=== PATIENT | female | born 1960 | race Caucasian/White ===

== ENCOUNTER 2016-07-26 20:54 | Inpatient (IN) | payer MEDICARE ==
[2016-07-26] MEDS ORDERED: SODIUM CHLORIDE 0.9% 1,000 ML IV STA (21:39)
--- NOTE | 2016-07-26 21:50 | ED ---
General Adult HPI - General Chief complaint: Weakness Stated complaint: right side numbness Time Seen by Provider: 07/26/16 21:21 Source: patient, family, RN notes reviewed Mode of arrival: wheelchair Limitations: no limitations - History of Present Illness Initial comments: Patient is a pleasant 55-year-old female presenting to the emergency Department with right-sided paresthesias. Patient has been having headaches for the past couple of years, more so on the right side. Patient has had progressive right arm paresthesias over the past month or so. Patient has had right facial paresthesias since a couple of weeks ago. Patient started with right leg paresthesias last night. Patient does complain of generalized weakness however does not notice any isolated area of weakness. No history of similar symptoms previously. Patient does have a history of neuropathy. Patient does have stage IV kidney failure. Patient is not on dialysis. - Related Data Home Medications Medication Instructions Recorded Confirmed Sertraline [Zoloft] 100 mg PO DAILY 10/12/14 07/26/16 Aspirin EC [Ecotrin Low Dose] 81 mg PO DAILY 07/26/16 07/26/16 Atorvastatin [Lipitor] 40 mg PO DAILY 07/26/16 07/26/16 Chlorthalidone [Hygroton] 25 mg PO DAILY 07/26/16 07/26/16 Ergocalciferol [Vitamin D2] 50,000 unit PO TU 07/26/16 07/26/16 Ferrous Sulfate [Feosol] 325 mg PO DAILY 07/26/16 07/26/16 Insulin Aspart [NovoLOG] 18 unit SQ AC-TID 07/26/16 07/26/16 Insulin Degludec [Tresiba 55 unit SQ BID 07/26/16 07/26/16 Flextouch U-100] Metoclopramide [Reglan] 5 mg PO QID 07/26/16 07/26/16 Multivits-Min/Iron/FA/Lutein 1 tab PO DAILY 07/26/16 07/26/16 [Centrum Silver Women Tablet] amLODIPine [Norvasc] 10 mg PO DAILY 07/26/16 07/26/16 Allergies Allergy/AdvReac Type Severity Reaction Status Date / Time Latex, Natural Rubber Allergy Rash/Hives Verified 07/26/16 22:06 Penicillins Allergy Rash/Hives Verified 07/26/16 22:06 propoxyphene napsylate AdvReac Nausea & Verified 07/26/16 22:06 [From Darvocet-N] Vomiting Review of Systems ROS Statement: Those systems with pertinent positive or pertinent negative responses have been documented in the HPI. ROS Other: All systems not noted in ROS Statement are negative. Constitutional: Denies: fever Eyes: Denies: eye pain ENT: Denies: ear pain Respiratory: Denies: cough, dyspnea Cardiovascular: Denies: chest pain Endocrine: Reports: fatigue Gastrointestinal: Denies: abdominal pain Genitourinary: Denies: dysuria Musculoskeletal: Denies: back pain Skin: Denies: rash Neurological: Reports: weakness, numbness, paresthesias, abnormal gait Past Medical History Past Medical History: Diabetes Mellitus, Hyperlipidemia, Hypertension, Renal Disease Additional Past Medical History / Comment(s): retinopathy,neuropathy," ckd stage 4", "charcot foot" History of Any Multi-Drug Resistant Organisms: None Reported Past Surgical History: Cholecystectomy, Hysterectomy, Orthopedic Surgery, Tonsillectomy Additional Past Surgical History / Comment(s): cataract surgery-lens implants, partial hysterectomy, myomectomy, teddy foot sx bone removed and in the rt foot has plate/screws, ovaries bx-neg Past Anesthesia/Blood Transfusion Reactions: Postoperative Nausea & Vomiting ( PONV) Past Psychological History: Depression Smoking Status: Never smoker Past Alcohol Use History: None Reported Past Drug Use History: None Reported - Past Family History Father Additional Family Medical History / Comment(s): at age 45 from "coronary thrombus" Mother Family Medical History: COPD, Diabetes Mellitus General Exam Limitations: no limitations General appearance: alert, in no apparent distress Head exam: Present: atraumatic, normocephalic Eye exam: Present: normal appearance, PERRL, EOMI. Absent: nystagmus ENT exam: Present: normal oropharynx Neck exam: Present: normal inspection Respiratory exam: Present: normal lung sounds bilaterally Cardiovascular Exam: Present: regular rate, normal rhythm GI/Abdominal exam: Present: soft. Absent: tenderness Extremities exam: Present: normal inspection Neurological exam: Present: alert, oriented X3, CN II-XII intact. Absent: motor sensory deficit Expanded Speech: Present: fluid speech Cranial nerves: EOM's Intact: Normal, Facial Sensation: Normal Cerebellar function: Finger to Nose: Normal Sensory exam: Upper Extremity Light Touch: Abnormal Right (Patient is able to sense light touch however states it is less than normal), Lower Extremity Light Touch: Abnormal Right, Abnormal Left (Decreased sensation with patient states is chronic from her neuropathy) Motor strength exam: RUE: 4 (Patient is able to hold against gravity however slight decreased unindentured apprentice strength on the right), LUE: 5, RLE: 4, LLE: 5 Eye Response: (4) open spontaneously Motor Response: (6) obeys commands Verbal Response: (5) oriented Psychiatric exam: Present: normal affect, normal mood Skin exam: Absent: rash Course Vital Signs 07/26/16 21:06 Temperature 98.4 F Pulse Rate 88 Respiratory 20 Rate Blood Pressure 140/78 O2 Sat by Pulse 98 Oximetry EKG Findings - EKG Comments: EKG Findings:: Normal sinus rhythm at 84. SC 176. QRS 84. QT 388. QTC 450. Normal axis. Normal QRS. No acute ST change. Medical Decision Making - Medical Decision Making Patient reevaluated and resting comfortably in bed. Patient and family updated on results and plan. Case was discussed in detail with Dr. wheatley, who will admit for Dr. Field. Patient will need to be seen by neurology for evaluation for possible MS or other neurological causes. Symptoms are not felt to be secondary to stroke secondary to gradual onset. - Lab Data Result diagrams: 07/26/16 21:50 07/26/16 21:50 Lab Results 07/26/16 07/26/16 07/26/16 Range/Units 21:50 21:50 21:50 WBC 7.7 (3.8-10.6) k/uL RBC 4.37 (3.80-5.40) m/uL Hgb 12.0 (11.4-16.0) gm/dL Hct 36.6 (34.0-46.0) % MCV 83.7 (80.0-100.0) fL MCH 27.6 (25.0-35.0) pg MCHC 32.9 (31.0-37.0) g/dL RDW 14.6 (11.5-15.5) % Plt Count 207 (150-450) k/uL Neutrophils % 71 % Lymphocytes % 19 % Monocytes % 7 % Eosinophils % 1 % Basophils % 1 % Neutrophils # 5.4 (1.3-7.7) k/uL Lymphocytes # 1.5 (1.0-4.8) k/uL Monocytes # 0.5 (0-1.0) k/uL Eosinophils # 0.1 (0-0.7) k/uL Basophils # 0.1 (0-0.2) k/uL PT (9.0-12.0) sec INR (<1.1) APTT (22.0-30.0) sec Sodium 138 (137-145) mmol/L Potassium 4.6 (3.5-5.1) mmol/L Chloride 100 (98-107) mmol/L Carbon Dioxide 24 (22-30) mmol/L Anion Gap 14 mmol/L BUN 56 H (7-17) mg/dL Creatinine 2.50 H (0.52-1.04) mg/dL Est GFR (MDRD) Af Amer 24 (>60 ml/min/1.73 sqM) Est GFR (MDRD) Non-Af 20 (>60 ml/min/1.73 sqM) Glucose 112 H (74-99) mg/dL Calcium 9.2 (8.4-10.2) mg/dL Phosphorus 5.4 H (2.5-4.5) mg/dL Magnesium 2.1 (1.6-2.3) mg/dL Total Bilirubin 0.4 (0.2-1.3) mg/dL AST 29 (14-36) U/L ALT 43 (9-52) U/L Alkaline Phosphatase 110 (38-126) U/L Total Creatine Kinase 72 (30-135) U/L CK-MB (CK-2) 1.1 (0.0-2.4) ng/mL CK-MB (CK-2) Rel Index 1.5 Troponin I <0.012 (0.000-0.034) ng/mL Total Protein 6.8 (6.3-8.2) g/dL Albumin 3.7 (3.5-5.0) g/dL TSH 2.880 (0.465-4.680) mIU/L Free T4 1.08 (0.78-2.19) ng/dL Free T3 pg/mL 3.6 (2.8-5.3) pg/ml 07/26/16 Range/Units 21:50 WBC (3.8-10.6) k/uL RBC (3.80-5.40) m/uL Hgb (11.4-16.0) gm/dL Hct (34.0-46.0) % MCV (80.0-100.0) fL MCH (25.0-35.0) pg MCHC (31.0-37.0) g/dL RDW (11.5-15.5) % Plt Count (150-450) k/uL Neutrophils % % Lymphocytes % % Monocytes % % Eosinophils % % Basophils % % Neutrophils # (1.3-7.7) k/uL Lymphocytes # (1.0-4.8) k/uL Monocytes # (0-1.0) k/uL Eosinophils # (0-0.7) k/uL Basophils # (0-0.2) k/uL PT 9.6 (9.0-12.0) sec INR 0.9 (<1.1) APTT 23.3 (22.0-30.0) sec Sodium (137-145) mmol/L Potassium (3.5-5.1) mmol/L Chloride (98-107) mmol/L Carbon Dioxide (22-30) mmol/L Anion Gap mmol/L BUN (7-17) mg/dL Creatinine (0.52-1.04) mg/dL Est GFR (MDRD) Af Amer (>60 ml/min/1.73 sqM) Est GFR (MDRD) Non-Af (>60 ml/min/1.73 sqM) Glucose (74-99) mg/dL Calcium (8.4-10.2) mg/dL Phosphorus (2.5-4.5) mg/dL Magnesium (1.6-2.3) mg/dL Total Bilirubin (0.2-1.3) mg/dL AST (14-36) U/L ALT (9-52) U/L Alkaline Phosphatase (38-126) U/L Total Creatine Kinase (30-135) U/L CK-MB (CK-2) (0.0-2.4) ng/mL CK-MB (CK-2) Rel Index Troponin I (0.000-0.034) ng/mL Total Protein (6.3-8.2) g/dL Albumin (3.5-5.0) g/dL TSH (0.465-4.680) mIU/L Free T4 (0.78-2.19) ng/dL Free T3 pg/mL (2.8-5.3) pg/ml - Radiology Data Radiology results: report reviewed (EKG scan of the brain shows mild atrophy. No acute abnormality.), image reviewed (Two-view chest x-ray shows no acute process.) Disposition Clinical Impression: Weakness Disposition: ADMITTED IP TO THIS HOSP
[2016-07-26 22:05] LABS: Basophils # (A) 0.1 k/uL (0-0.2); Basophils % (A) 1 %; CH 28.9; CHCM 34.7; Eosinophils # (A) 0.1 k/uL (0-0.7); Eosinophils % (A) 1 %; HCT 36.6 % (34.0-46.0); Luc % (Auto) 1; Lymphocytes # (A) 1.5 k/uL (1.0-4.8); Lymphocytes % (A) 19 %; MCH 27.6 pg (25.0-35.0); MCHC 32.9 g/dL (31.0-37.0); MCV 83.7 fL (80.0-100.0); Mean Platelet Volume 7.5; Monocytes # (A) 0.5 k/uL (0-1.0); Monocytes % (A) 7 %; Neutrophils # (A) 5.4 k/uL (1.3-7.7); Neutrophils % (A) 71 %; RBC 4.37 m/uL (3.80-5.40); RDW 14.6 % (11.5-15.5); WBC 7.7 k/uL (3.8-10.6)
[2016-07-26 22:17] LABS: INR 0.9 (<1.1); Partial Thromboplastin Time 23.3 sec (22.0-30.0); Prothrombin Time 9.6 sec (9.0-12.0)
[2016-07-26 22:22] LABS: Calcium 9.2 mg/dL (8.4-10.2); Magnesium 2.1 mg/dL (1.6-2.3); Phosphorous 5.4 mg/dL (2.5-4.5); Potassium 4.6 mmol/L (3.5-5.1); Total Bilirubin 0.4 mg/dL (0.2-1.3); Total Protein 6.8 g/dL (6.3-8.2)
--- NOTE | 2016-07-26 22:31 | CT ---
EXAMINATION TYPE: CT brain wo con DATE OF EXAM: 07/26/2016 10:26 PM COMPARISON: NONE HISTORY: Right sided numbness x [address] DLP: 1115.00 mGycm Automated exposure control for dose reduction was used. FINDINGS: There is cerebral cortical atrophy. There is no mass effect or midline shift. There is no sign of int racranial hemorrhage. The calvarium is intact. IMPRESSION: Mild atrophy. No acute intracranial abnormality.
[2016-07-26 22:32] LABS: Creatine Kinase 72 U/L (30-135)
--- NOTE | 2016-07-26 22:32 | XR ---
EXAMINATION TYPE: XR chest 2V DATE OF EXAM: 07/26/2016 10:28 PM COMPARISON: NONE HISTORY: Weakness TECHNIQUE: Frontal and lateral views of the chest are obtained. FINDINGS: Heart and mediastinum are normal. Lungs are clear. Diaphragm is normal. Bony thorax is int act. IMPRESSION: Normal chest
[2016-07-26 22:46] LABS: Troponin I <0.012 ng/mL (0.000-0.034)
[2016-07-26 22:56] LABS: Creatine Kinase MB 1.1 ng/mL (0.0-2.4)
[2016-07-26] MEDS ORDERED: NALOXONE 0.4 MG/ML 1 ML VIAL IV PRN (23:21)
[2016-07-26] MEDS ORDERED: SODIUM CHLORIDE 0.9% 1,000 ML IV SCH (23:30)
[2016-07-27 00:56] LABS: Glucose,Whole Blood 166 mg/dL (75-99)
[2016-07-27 01:05] VITALS: BMI 31.0
[2016-07-27 05:02] LABS: Appearance,Urine Clear (Clear); Bacteria,Urine Rare /hpf; Bilirubin,Urine Negative (Negative); Glucose,Urine (UA) 3+ (Negative); Ketones,Urine Trace (Negative); Leukocyte Esterase,Urine Negative (Negative); Mucus,Urine Rare /hpf; Nitrite,Urine Negative (Negative); Particle Count 1448; Protein,Urine 3+ (Negative); RBC,Urine 1 /hpf (0-5); Specific Gravity,Urine 1.011 (1.001-1.035); Squamous Epithelial Cell,Urine <1 /hpf (0-4); UA Billing (MACRO vs. MICRO) MICRO; Urobilinogen,Urine <2.0 mg/dL (<2.0); WBC,Urine 9 /hpf (0-5)
[2016-07-27 07:16] LABS: Glucose,Whole Blood 254 mg/dL (75-99)
[2016-07-27] MEDS: INSULIN LISPRO (humaLOG) 300 UNIT/3 ML VIAL SQ SCH ×3 (07:58→16:59)
[2016-07-27] MEDS: FERROUS SULFATE 325 MG TAB PO SCH (08:00)
[2016-07-27] MEDS: METOCLOPRAMIDE 5 MG TAB PO SCH ×4 (08:00→23:21)
[2016-07-27] MEDS: ATORVASTATIN 40 MG TAB PO SCH (08:00)
[2016-07-27] MEDS: ASPIRIN 81 MG CHEW PO SCH (08:00)
[2016-07-27] MEDS: MULTIVITAMINS, THERA 1 EACH TAB PO SCH (08:01)
[2016-07-27] MEDS: SERTRALINE 100 MG TAB PO SCH (08:01)
[2016-07-27] MEDS: INSULIN GLARGINE 100 UNIT/ML 10 ML VIAL SQ SCH ×2 (08:04→20:14)
[2016-07-27] MEDS ORDERED: amLODIPine 10 MG TAB PO SCH (09:00)
[2016-07-27] MEDS ORDERED: CHLORTHALIDONE 25 MG TAB PO SCH (09:00)
[2016-07-27] MEDS ORDERED: INSULIN DEGLUDEC 55 UNIT SQ SCH (09:00)
[2016-07-27 12:42] LABS: Glucose,Whole Blood 144 mg/dL (75-99)
--- NOTE | 2016-07-27 13:01 | P.CNNES ---
History of Present Illness Consult date: 07/27/16 Reason for Consult: Patient admitted numbness and weakness on the right side. History of Present Illness: This patient is a 55-year-old right-handed white female who was in her usual state of health until late yesterday evening. She was at home and was sitting on the couch and her son asked her to go with him to get some groceries. Apparently she stood up and felt very weak on her right side. She was falling to her right side suddenly which was concern. The patient also began experiencing numbness on the right face arm and leg. The symptoms came on off- and-on for the past 1 month. She is also been having chronic headaches for over a month which was diagnosis possible sinus headaches. The patient states that she was feeling very much off balance and had difficulty standing on her right leg. She was experiencing paresthesias to her right side. The patient states that over the last month she has been feeling weaker. She does have a history of underlying diabetes mellitus and has been treated with insulin for this condition. Her most recent hemoglobin A1c was 9.6. She does have history of severe diabetic neuropathy in the extremities. Patient also has stage IV kidney failure. She has not required hemodialysis for this condition. She is followed by her special education secretary. The patient's stroke risk factors include hyperlipidemia, hypertension, and weakness some. The patient also was noted to have slight slurring of her speech which her who was at bedside states was slightly more noticeable to him in the last few days as well. The patient was brought to the emergency room late yesterday evening for evaluation. She was seen by Dr. Carranza who ordered a computed tomography scan of the brain. CAT scan of the brain revealed atrophy with no acute intracranial abnormality. Due to her symptoms there was concern for possibility of TIA versus stroke. Given her young age also question of demyelinating disease such as multiple sclerosis. Patient does have history of some visual changes off-and-on but denies any history of diplopia recently. She does take one baby aspirin on a daily basis for the last year. She is now been admitted and neurology has been consulted for further evaluation and recommendations. Review of Systems Constitutional: Denies chills, Denies fever Eyes: denies blurred vision, denies pain Ears, nose, mouth and throat: Denies headache, Denies sore throat Cardiovascular: Denies chest pain, Denies shortness of breath Respiratory: Denies cough Genitourinary: Denies dysuria, Denies hematuria Musculoskeletal: Denies myalgias Integumentary: Denies pruritus, Denies rash Neurological: Reports change in speech, Reports headaches, Reports migraines, Reports paresthesias, Reports transient paralysis, Denies numbness, Denies weakness Psychiatric: Denies anxiety, Denies depression Endocrine: Denies fatigue, Denies weight change Past Medical History Past Medical History: Diabetes Mellitus, Hyperlipidemia, Hypertension, Renal Disease Additional Past Medical History / Comment(s): retinopathy,neuropathy," ckd stage 4", "charcot foot" History of Any Multi-Drug Resistant Organisms: None Reported Past Surgical History: Cholecystectomy, Hysterectomy, Orthopedic Surgery, Tonsillectomy Additional Past Surgical History / Comment(s): cataract surgery-lens implants, partial hysterectomy, myomectomy, teddy foot sx bone removed and in the rt foot has plate/screws, ovaries bx-neg Past Anesthesia/Blood Transfusion Reactions: Postoperative Nausea & Vomiting ( PONV) Past Psychological History: Depression Smoking Status: Never smoker Past Alcohol Use History: None Reported Past Drug Use History: None Reported - Past Family History Father Additional Family Medical History / Comment(s): at age 45 from "coronary thrombus" Mother Family Medical History: COPD, Diabetes Mellitus Medications and Allergies Home Medications Medication Instructions Recorded Confirmed Type Sertraline [Zoloft] 100 mg PO DAILY 10/12/14 07/26/16 History Aspirin EC [Ecotrin Low Dose] 81 mg PO DAILY 07/26/16 07/26/16 History Atorvastatin [Lipitor] 40 mg PO DAILY 07/26/16 07/26/16 History Chlorthalidone [Hygroton] 25 mg PO DAILY 07/26/16 07/26/16 History Ergocalciferol [Vitamin D2] 50,000 unit PO TU 07/26/16 07/26/16 History Ferrous Sulfate [Feosol] 65 mg PO DAILY 07/26/16 07/27/16 History Insulin Aspart [NovoLOG] 18 unit SQ AC-TID 07/26/16 07/26/16 History Insulin Degludec [Tresiba 55 unit SQ BID 07/26/16 07/26/16 History Flextouch U-100] Metoclopramide [Reglan] 5 mg PO QID 07/26/16 07/26/16 History Multivits-Min/Iron/FA/Lutein 1 tab PO DAILY 07/26/16 07/26/16 History [Centrum Silver Women Tablet] amLODIPine [Norvasc] 10 mg PO DAILY 07/26/16 07/26/16 History Allergies Allergy/AdvReac Type Severity Reaction Status Date / Time Latex, Natural Rubber Allergy Rash/Hives Verified 07/26/16 22:06 Penicillins Allergy Rash/Hives Verified 07/26/16 22:06 propoxyphene napsylate AdvReac Nausea & Verified 07/26/16 22:06 [From Darvocet-N] Vomiting Physical Examination - Vital Signs Vital Signs: Vital Signs Temp Pulse Pulse Resp BP BP Pulse Ox 07/27/16 08:00 90 16 07/27/16 07:00 98 F 92 14 146/84 96 07/27/16 03:12 16 07/27/16 01:54 16 07/27/16 01:26 98.0 F 90 16 145/82 95 07/26/16 23:50 95 18 160/77 96 Intake and Output 07/26/16 07/27/16 07/27/16 22:59 06:59 14:59 Intake Total 100 350 Output Total 300 Balance -200 350 Intake: Amount of Fluid Infused ( 100 ml) Oral 350 Output: Urine 300 Other: # Voids 1 Weight 95.254 kg - Constitutional General appearance: average body habitus, cooperative - EENT EENT: PERRL, mucous membranes moist - Respiratory Respiratory: lungs clear, normal breath sounds - Cardiovascular Cardiovascular: regular rate, normal S1, normal S2 Extremities: no peripheral edema bilaterally - Gastrointestinal Gastrointestinal: normoactive bowel sounds - Integumentary Integumentary: normal - Neurologic Cranial nerve examination: PERRL, EOMI, VFF, V1/V2/V3 grossly intact, tongue midline, intact gag reflex, intact corneal reflex, facial droop (Patient has slight facial asymmetry on the right.), normal palatal elevation Speech examination: intact Sensorimotor examination: intact Detailed motor examination: grossly full strength in all extremities Detailed sensory examination: intact Reflex and gait examination: intact Reflexes: 0: ankle, knee, 1+: bicep, tricep - Musculoskeletal Musculoskeletal: no pain - Psychiatric Psychiatric: mood/affect appropriate, cooperative Results - Laboratory Findings CBC and BMP: 07/26/16 21:50 07/26/16 21:50 Abnormal Lab Findings: Abnormal Labs 07/27/16 07/27/16 07/27/16 00:54 04:20 07:14 POC Glucose (mg/dL) 166 H 254 H Urine Protein 3+ H Urine Glucose (UA) 3+ H Urine Ketones Trace H Urine Blood Moderate H Urine WBC 9 H Urine Bacteria Rare H Urine Mucus Rare H Assessment and Plan (1) Acute left arterial ischemic stroke, ICA (internal carotid artery) Status: Acute Code(s): I63.232 - CEREB INFRC DUE TO UNSP OCCLS OR STENOS OF LEFT CAROTID ART (2) Diabetic neuropathy Status: Acute Code(s): E11.40 - TYPE 2 DIABETES MELLITUS WITH DIABETIC NEUROPATHY, UNSP (3) Aphasia Status: Acute Code(s): R47.01 - APHASIA (4) Weakness Status: Acute Code(s): R53.1 - WEAKNESS (5) Acute kidney injury Status: Acute Code(s): N17.9 - ACUTE KIDNEY FAILURE, UNSPECIFIED Plan: This patient is a 55-year-old female admitted with sudden onset right-sided weakness and paresthesias late yesterday evening. She has been complaining of recurrent headache for the past 1 month. She also has had intermittent paresthesias involving her right side for the past several weeks. She was brought into the emergency room where she was evaluated last night by Dr. Carranza. She underwent computed tomography scan of the brain which was reported negative for acute changes. She was admitted to hospital for further evaluation. Her neurological exam findings indicate right-sided weakness and paresthesias. This suggest possibility of acute left hemispheric subcortical stroke. We have recommended complete stroke evaluation for the patient. Given her young age we would also rule out possibility of demyelinating disease such as multiple sclerosis. We recommend MRI of the brain. We would recommend a complete stroke evaluation to the patient. She is to continue on 1 aspirin daily for secondary stroke prevention. Overall prognosis at this time remains guarded. Case was discussed at length with the patient and her at bedside. All their questions are answered. We will continue close neurological follow-up for this patient during this admission. Time with Patient: Greater than 30
--- NOTE | 2016-07-27 15:16 | US ---
EXAMINATION TYPE: US carotid duplex BILAT DATE OF EXAM: 07/27/2016 2:11 PM COMPARISON: NONE CLINICAL HISTORY: 55-year-old female with right side weakness. TECHNIQUE: Duplex Doppler ultrasound examination of the carotid vessels. In direct Doppler criteria w as utilized. FINDINGS: Vazquez scale images show mild atherosclerotic changes at both bifurcations. RIGHT: Peak Systolic Velocity (PSV) cm/sec ----- Right CCA: 85.2 ----- Right ICA: 80.0 ----- Right ECA: 111.9 ICA/CCA ratio: 0.9 RIGHT: End Diastole cm/sec ----- Right CCA: 16.2 ----- Right ICA: 22.3 ----- Right ECA: 9.5 LEFT: Peak Systolic Velocity (PSV) cm/sec ----- Left CCA: 87.0 ----- Left ICA: 91.0 ----- Left ECA: 127.7 ICA/CCA ratio: 1.0 LEFT: End Diastole cm/sec ----- Left CCA: 14.5 ----- Left ICA: 29.3 ----- Left ECA: 8.6 VERTEBRALS (direction of flow): Right Vertebral: Antegrade Left Vertebral: Antegrade IMPRESSION: No hemodynamically significant stenosis appreciated in either ICA. Criteria for Assigning % of Stenosis / Diameter reduction (Estimation based on the indirect measurements of the internal carotid artery velocities (ICA PSV). 1. Normal (no stenosis)=ICA PSV < 125 cm/s: ratio < 2.0: ICA EDV<40 cm/s. 2. Less than 50% stenosis=ICA PSV < 125 cm/s: ratio < 2.0: ICA EDV<40 cm/s. 3. 50 to 69% stenosis=ICA PSV of 125 to 230 cm/s: ration 2.0 ? 4.0: ICA EDV 40-100 cm/s. 4. Greater than 70% stenosis to near occlusion= ICA PSV > 230 cm/s: ratio > 4.0: ICA EDV > 100 cm/s. 5. Near occlusion= ICA PSV velocities may be low or undetectable: variable ratio and ICA EDV. 6. Total occlusion=unable to detect flow.
--- NOTE | 2016-07-27 15:57 | MR ---
MRI brain without contrast HISTORY: Headache, right-sided weakness Multiplanar multisequence imaging through the brain and correlated to CT brain July There is no restricted diffusion. Corpus callosum, pituitary, cervical medullary junction, cerebellop ontine angles are normal. There are normal vascular flow voids. The orbits show symmetric appearance. Brain signal is remarkable for some periventricular hyperintensities on inversion recovery and T2-we ighted sequences which are minute. There are approximately 10-20 lesions. Mild mucosal disease presen t in the ethmoid air cells. IMPRESSION: Nonspecific foci of demyelination. Consider hypertension, migraine headaches, multiple sc lerosis in the appropriate clinical setting, vasculitis, follow-up as indicated. Mild sinus disease.
[2016-07-27] MEDS: SODIUM CHLORIDE 0.9% 1,000 ML IV SCH ×2 (16:57→20:15)
[2016-07-27 17:02] LABS: Glucose,Whole Blood 114 mg/dL (75-99)
[2016-07-27 20:19] LABS: Glucose,Whole Blood 133 mg/dL (75-99)
--- NOTE | 2016-07-27 22:30 | HP ---
Patient is a 55-year-old female, came in with complaints of weakness on the right side of the body along with numbness in the right arm and right side of face as well as leg and patient's strength is about 4/5. Patient was also having ( ). Patient denied any slurred speech, facial droop, denied any headache, nausea, vomiting. Patient denied any migraine or seizure-like activity. CAT scan of the brain was done which revealed ( ) abnormality. Neurology evaluated the patient and they suspected multiple sclerosis, because of which brain MRI was obtained. There were 10 to 20 lesions on the brain MRI which can be explained by multiple sclerosis. Patient denied any retro-orbital pain. REVIEW OF SYSTEMS: CONSTITUTIONAL: No fever, no malaise, no fatigue. HEENT: No recent visual problems or hearing problems. Denied any sore throat. CARDIOVASCULAR: No chest pain, orthopnea, PND, no palpitations, no syncope. PULMONARY: No shortness of breath, no cough, no hemoptysis. GASTROINTESTINAL: No diarrhea, no nausea, no vomiting, no abdominal pain. Normoactive bowel sounds. NEUROLOGIC: As described in HPI. HEMATOLOGICAL: Denies any bleeding or petechiae. GENITOURINARY: Denies any burning micturition, frequency, or urgency. MUSCULOSKELETAL/RHEUMATOLOGICAL: Denies any joint pain, swelling, or any muscle pain. ENDOCRINE: Denies any polyuria or polydipsia. The rest of the 14 point review of systems is negative. PAST MEDICAL HISTORY: Significant for diabetes mellitus, hyperlipidemia, hypertension, CKD stage 2 as per when I saw her about a year ago. At that time her baseline creatinine was around 1.3, now around 2.8. I believe patient has acute renal failure as well. Patient has diabetic retinopathy and neuropathy. Patient had a cholecystectomy and hysterectomy, orthopedic surgery, tonsillectomy and depression. SOCIAL HISTORY: Denied any smoking, alcohol abuse or any drug abuse. FAMILY HISTORY: Father at age 45 of ( ) thrombus. Mother had COPD, diabetes mellitus. Home medications include: 1. Aspirin. 2. Atorvastatin. 3. Chlorthalidone. 4. Cholecalciferol. 5. Ferrous sulfate. 6. Aspart insulin and 7. A long-acting insulin. 8. Metoclopramide. 9. Multivitamin and 10. Amlodipine. ALLERGIES: ALLERGIC TO LATEX, PENICILLIN AND PROPOXYPHENE. PHYSICAL EXAMINATION: VITAL SIGNS: Temperature 98, pulse of 90, respiratory rate of 16, blood pressure 146/84, saturating at 96% on room air. GENERAL: The patient is alert and oriented x3, not in any acute distress. Well developed, well nourished. HEENT: Pupils are round and equally reacting to light. EOMI. No scleral icterus. No conjunctival pallor. Normocephalic, atraumatic. No pharyngeal erythema. No thyromegaly. CARDIOVASCULAR: S1 and S2 present. No murmurs, rubs, or gallops. PULMONARY: Chest is clear to auscultation, no wheezing or crackles. ABDOMEN: Soft, nontender, nondistended, normoactive bowel sounds. No palpable organomegaly. MUSCULOSKELETAL: No joint swelling or deformity. EXTREMITIES: No cyanosis, clubbing, or pedal edema. NEUROLOGICAL: Cranial nerves 2-12 are intact except for 5th cranial nerve as mentioned above. Patient has absent ankle and knee jerks on the right side and patient's strength is about 4/5 in right upper extremity as well as lower extremity. SKIN: No rashes. LABORATORY DATA: CBC, CMP are abnormal for elevated BUN and creatinine of 56 and 2.5. 3+ protein 3+ glucose in the urine. CT, MRI as mentioned above. Carotid Doppler within normal limits. ASSESSMENT AND PLAN: 1. Weakness of the right side of the body. Definitely, strokes needs to be excluded. Patient's symptoms started yesterday morning, but patient has multiple lesions that can be explained by multiple sclerosis. Neurology is following the patient. 2. Type 2 diabetes mellitus. Will continue with her home regimen along with sliding scale insulin titrated as needed. 3. Diabetic neuropathy. 4. Diabetic nephropathy with stage 2 chronic kidney disease. 5. Stage 2 chronic kidney disease, acute renal failure, prerenal azotemia due to diuretic therapy. Patient is on diuretic in the form of chlorthalidone, which will be discontinued. Patient in the past has issues with acute renal failure and during her previous hospitalization, I treated her acute renal failure. I started her on 125 mL of fluids to allow kidney and brain perfusion. I will go ahead and discontinue amlodipine. 6. Hypertension management. As mentioned above, chlorthalidone and amlodipine will be discontinued. Patient's blood pressure will be monitored. 7. Depression. Continue home medications. 8. Hyperlipidemia. Continue with statin. 9. Patient's primary care physician is Dr. Gibson.
[2016-07-28] MEDS: SODIUM CHLORIDE 0.9% 1,000 ML IV SCH ×2 (02:42→14:20)
[2016-07-28 07:21] LABS: Calcium 8.6 mg/dL (8.4-10.2); Potassium 4.2 mmol/L (3.5-5.1)
[2016-07-28 07:28] LABS: CH 28.5; CHCM 32.8; HCT 31.4 % (34.0-46.0); HDW 3.04; HGB 10.2 gm/dL (11.4-16.0); MCH 28.2 pg (25.0-35.0); MCHC 32.4 g/dL (31.0-37.0); MCV 87.1 fL (80.0-100.0); RBC 3.61 m/uL (3.80-5.40); RDW 14.6 % (11.5-15.5); WBC 4.5 k/uL (3.8-10.6)
[2016-07-28 07:31] LABS: Glucose,Whole Blood 113 mg/dL (75-99)
[2016-07-28] MEDS: INSULIN GLARGINE 100 UNIT/ML 10 ML VIAL SQ SCH (08:51)
[2016-07-28] MEDS: INSULIN LISPRO (humaLOG) 300 UNIT/3 ML VIAL SQ SCH ×2 (08:53→14:20)
[2016-07-28] MEDS: SERTRALINE 100 MG TAB PO SCH (08:53)
[2016-07-28] MEDS: ATORVASTATIN 40 MG TAB PO SCH (08:53)
[2016-07-28] MEDS: METOCLOPRAMIDE 5 MG TAB PO SCH ×2 (08:53→14:19)
[2016-07-28] MEDS: MULTIVITAMINS, THERA 1 EACH TAB PO SCH (08:54)
[2016-07-28] MEDS: ASPIRIN 81 MG CHEW PO SCH (08:54)
[2016-07-28] MEDS: FERROUS SULFATE 325 MG TAB PO SCH (08:54)
--- NOTE | 2016-07-28 09:49 | EEG ---
DATE OF SERVICE: 07/27/2016 INDICATIONS FOR EXAMINATION: This patient is a 55-year-old female being evaluated for right-sided weakness and paresthesias. AGE: 55Y FINDINGS: A routine 21-channel awake digital EEG recording was accomplished utilizing the 10-20 international system with bipolar and referential montages. The background activity in the most alert resting state consists of a low to medium amplitude fairly well developed and well sustained 7-8 Hz activity over the posterior head regions. This posterior rhythm attenuates to eye opening. There is a small amount of low amplitude 18-20 Hz beta activity seen maximally over the anterior head regions. Muscle and movement artifact was observed on a few occasions during the tracing. Hyperventilation was not performed. Photic stimulation at flash frequencies of 2-30 Hz produced a minimal occipital driving response. No epileptiform discharges were seen. IMPRESSION: This EEG is within normal limits for the patient's age. The EEG failed to reveal any focal, lateralizing or epileptiform abnormalities. Clinical correlation is recommended.
[2016-07-28 11:03] LABS: Glucose,Whole Blood 201 mg/dL (75-99)
[2016-07-28 13:52] VITALS: BP 158/79; PULSE 87; RESP 17; TEMP 98
--- NOTE | 2016-07-28 14:30 | P.PN ---
Subjective This patient is a 55-year-old right-handed white female who was admitted to hospital yesterday with symptoms of right-sided paresthesias involving face arm and leg. Symptoms had been off and on for the last several weeks. She was brought into the emergency room as she was having difficulty walking. She underwent a palpation in the ER which included computed tomography scan of the brain. CAT scan of the brain failed to reveal any acute changes. She also complained of slight slurred speech which had improved since her admission. There was concern for possibility of TIA versus stroke. She was sent for MRI of the brain which was completed on 07/27/2016. MRI revealed nonspecific white matter changes in both hemispheres. Given her young age we were still considering possibility of demyelinating disease. We did discuss this yesterday with the patient in detail. There was no evidence of acute stroke. We did recommend the patient undergo a lumbar puncture for further evaluation for MS. Yesterday evening the patient had agreed and consultation with anesthesia was put in last night. Apparently this morning the patient has declined to undergo lumbar puncture at this time. She should continue on aspirin therapy for secondary stroke prevention. All of her other studies were reviewed and were within normal limits. Her EEG was normal for age. Patient may follow-up in the outpatient neurology clinic if she wishes to pursue further workup for possible MS. She is to continue on aspirin daily for secondary stroke prevention if she is discharged home today. Objective - Vital Signs Vital signs: Vital Signs Temp 98.0 F 07/28/16 13:52 Pulse 87 07/28/16 13:52 Resp 17 07/28/16 13:52 BP 158/79 07/28/16 13:52 Pulse Ox 96 07/28/16 13:52 Intake & Output 07/27/16 07/28/16 07/28/16 18:59 06:59 18:59 Intake Total 510 880 Balance 510 880 Intake: Intake, IV Titration 160 Amount Sodium Chloride 0.9% 1, 160 000 ml @ 20 mls/hr IV . Q24H AMOR Rx#:[id number] Oral 350 880 Other: Voiding Method Toilet Toilet # Voids 1 - Exam Physical examination: PHYSICAL EXAMINATION: Patient is resting comfortably in bed. VITAL SIGNS: Blood pressure is [158/79]. Heart rate is [87]. Respiration is [17] . Temperature is [98.0]. HEENT: Head is atraumatic, neck is supple, there were no carotid bruits. CHEST: Lungs are clear to auscultation and percussion. CARDIAC: S1, S2 normal rate and rhythm. There is no murmur. ABDOMEN: Soft and nontender. Bowel sounds are present. EXTREMITIES: There is no pedal edema. Peripheral pulses are present. Neurological examination: Patient has a nonfocal neurological exam. - Labs CBC & Chem 7: 07/28/16 06:38 07/28/16 06:38 Labs: Abnormal Lab Results - Last 24 Hours (Table) 07/27/16 07/27/16 07/28/16 Range/Units 17:00 20:13 06:38 RBC 3.61 L (3.80-5.40) m/uL Hgb 10.2 L (11.4-16.0) gm/dL Hct 31.4 L (34.0-46.0) % Plt Count 149 L (150-450) k/uL Chloride (98-107) mmol/L BUN (7-17) mg/dL Creatinine (0.52-1.04) mg/dL Glucose (74-99) mg/dL POC Glucose (mg/dL) 114 H 133 H (75-99) mg/dL 07/28/16 07/28/16 07/28/16 Range/Units 06:38 07:21 11:00 RBC (3.80-5.40) m/uL Hgb (11.4-16.0) gm/dL Hct (34.0-46.0) % Plt Count (150-450) k/uL Chloride 110 H (98-107) mmol/L BUN 56 H (7-17) mg/dL Creatinine 3.01 H (0.52-1.04) mg/dL Glucose 106 H (74-99) mg/dL POC Glucose (mg/dL) 113 H 201 H (75-99) mg/dL Assessment and Plan (1) Acute left arterial ischemic stroke, ICA (internal carotid artery) Status: Acute Code(s): I63.232 - CEREB INFRC DUE TO UNSP OCCLS OR STENOS OF LEFT CAROTID ART (2) Diabetic neuropathy Status: Acute Code(s): E11.40 - TYPE 2 DIABETES MELLITUS WITH DIABETIC NEUROPATHY, UNSP (3) Aphasia Status: Acute Code(s): R47.01 - APHASIA (4) Weakness Status: Acute Code(s): R53.1 - WEAKNESS (5) Acute kidney injury Status: Acute Code(s): N17.9 - ACUTE KIDNEY FAILURE, UNSPECIFIED Plan: This patient is a 55-year-old female who was admitted to hospital with episode of right-sided face arm and leg numbness which had been intermittently occurring over the last 2 weeks at home. She was admitted hospital for further evaluation of possible TIA versus stroke. Social concern for possibility of demyelinating disease given her young age. She underwent a MRI of the brain yesterday which was reviewed and is noted above. MRI revealed nonspecific white matter changes in both hemispheres. There was no evidence of acute stroke. Patient was recommended to undergo lumbar puncture for further evaluation of demyelinating disease such as MS. Patient this morning declined to have lumbar puncture done and wanted to be discharged. We recommend that she continue on 1 aspirin daily for secondary stroke prevention. If she decides or changes her mind in terms of undergoing lumbar puncture for further evaluation of MS this can be arranged in the outpatient setting. She should follow-up with her primary care physician soon after discharge. Her overall prognosis at this time remains guarded.
--- NOTE | 2016-07-28 20:53 | DS ---
DATE OF ADMISSION: 07/26/2016 DATE OF DISCHARGE: 07/28/2016 55-year-old admitted with weakness on the right side, although MRA and MRI was read by radiologist as multiple lesions. Neurology evaluated the patient. They do not believe patient has multiple sclerosis. They did review the MRI as well and patient's symptomatology is not impressive for any TIA or a stroke and patient declined to get a lumbar puncture to confirm there is MS because of which patient will follow up with Jose Alberto Mackey as an outpatient with possible outpatient lumbar puncture. Patient will be discharged today in stable medical condition to home. Patient's creatinine worsened a little bit. Hopefully that will improve with discontinuation of Chlorthalidone and repeat basic metabolic profile will be obtained. It did not improve with IV fluids. Patient appears to have CKD. The patient was seen and examined on the day of discharge. Vital signs stable. PHYSICAL EXAMINATION: GENERAL: The patient is alert and oriented x3, not in any acute distress. Well developed, well nourished. HEENT: Pupils are round and equally reacting to light. EOMI. No scleral icterus. No conjunctival pallor. Normocephalic, atraumatic. No pharyngeal erythema. No thyromegaly. CARDIOVASCULAR: S1 and S2 present. No murmurs, rubs, or gallops. PULMONARY: Chest is clear to auscultation, no wheezing or crackles. ABDOMEN: Soft, nontender, nondistended, normoactive bowel sounds. No palpable organomegaly. MUSCULOSKELETAL: No joint swelling or deformity. EXTREMITIES: No cyanosis, clubbing, or pedal edema. NEUROLOGICAL: Gross neurological examination did not reveal any focal deficits. SKIN: No rashes. FINAL DIAGNOSIS(ES): 1. Weakness on the right of the body which completely resolved. As per neurology evaluation low suspicion for either TIA or multiple sclerosis. 2. Type 2 diabetes mellitus. 3. Diabetic nephropathy. 4. Diabetic neuropathy. 5. Chronic kidney disease Stage IV a little worse than her baseline creatinine. 6. Hypertension. 7. Depression. 8. Hyperlipidemia. Please refer to my depart summary for further details of discharge medications. Only changes are made is discontinued Chlorthalidone because of poor renal function it may not be effective and it may actually improve the creatinine. Basic metabolic profile is to be tested in 3 days on Sunday and results to be faxed to Dr. Bazo's clinic. DISCHARGE DIET: Cardiac ADA 1800 calorie diet. Follow up with Dr. Gibson in 3 to [address] Jose Alberto Arcos in about a week. Spent greater than 35 minutes in total discharge process.
[2016-08-01] MEDS ORDERED: ERGOCALCIFEROL 50,000 UNIT CAP PO SCH (09:00)
--- NOTE | 2016-08-01 13:09 | CDI ---
In responding to this query, please exercise your independent professional judgment. The [facility] Coding Staff and Clinical Documentation Specialists appreciate your assistance in clarifying documentation, maintaining compliance with coding guidelines, accurately documenting patients condition and capturing severity of illness. The fact that a question is asked does not imply that any particular answer is desired or expected. Communication forms are a method of clarifying documentation and are not made part of the Legal Health Record. Thank you in advance for your clarification. Last Revision, May 2015 Christina Calhoun [address] [place] [address] Documentation Clarification Form Date: 08/01/2016 12:30:00 PM From: Cynthia Arnold Admit Date: 07/26/2016 11:21:00 PM Patient Name: Nury Philip Visit Number: [id number] Discharge Date: Dr. Jose Alberto Arcos ER with chief complaint of weakness Patient history/risk factors: Diabetes Mellitus, Hyperlipidemia, Hypertension, Renal disease, CKD stage 4, Neuropathy Clinical Indicators: ER with right-sided paresthesias progressive over the past month or so. Prior right facial paresthesias. Exam: RUE: 4, LUE:5, RLE: 4, LLE: 5; obeys commands, orientated Lab findings: BUN 56, CR 2.50 Vital Signs: 146/84 90 16 98, 96 % RA Radiology findings: CT Brain: mild atrophy Brain MRI: Nonspecific foci of demyelination. Consider hypertension, migraine headaches, MS, vasculitis. Carotid US: No hemodynamically significant stenosis appreciated in either ICA Other Clinical Indicators: weakness on right side of body with patient's strength 4/5 in right upper and lower extremities. Attending: Neurology do not believe patient has multiple sclerosis. MRI and patient's symptomatology is not impressive for any TIA or stroke and patient decline to get a lumbar puncture to confirm there is MS. Treatment: Neuro checks ASA PO Consults: Neurology: Concern for possibility of PEÑA versus stroke. No evidence of stroke. Follow -up lumbar puncture for further evaluation of demyelinating disease such as MS In your professional opinion, can you please clarify the possible, probable cause of the patient weakness? Other (Specify) Unable to determine Please document in your progress notes and discharge summary in order to capture severity of illness and risk of mortality. Include clinical findings that support your diagnosis. FYI: Press F11 to launch patient chart. Place X here if this finding has no clinical significance, is not applicable or if you are not able to provide any additional documentation. MTDD
== END 2016-07-28 15:35 | disposition home or self-care (01) | DRG 948 ==
LOC: EC 20:54 → 3SUR 23:21
PROVIDERS: ADMIT Internal Medicine; ATTEND Internal Medicine
DX: R53.1 Weakness (principal); E11.21 Type 2 diabetes mellitus with diabetic nephropathy; N17.9 Acute kidney failure, unspecified; N18.4 Chronic kidney disease, stage 4 (severe); E11.40 Type 2 diabetes mellitus with diabetic neuropathy, unspecified; G81.91 Hemiplegia, unspecified affecting right dominant side; R47.01 Aphasia; E11.22 Type 2 diabetes mellitus with diabetic chronic kidney disease; E11.319 Type 2 diabetes mellitus with unspecified diabetic retinopathy without macular edema; I12.9 Hypertensive chronic kidney disease with stage 1 through stage 4 chronic kidney disease, or unspecified chronic kidney disease; E78.5 Hyperlipidemia, unspecified; F32.9 Major depressive disorder, single episode, unspecified; E11.610 Type 2 diabetes mellitus with diabetic neuropathic arthropathy; T50.2X5A Adverse effect of carbonic-anhydrase inhibitors, benzothiadiazides and other diuretics, initial encounter; Z98.49 Cataract extraction status, unspecified eye; Z96.1 Presence of intraocular lens; Z90.49 Acquired absence of other specified parts of digestive tract; Z90.710 Acquired absence of both cervix and uterus; Z91.040 Latex allergy status; Z88.0 Allergy status to penicillin; Z91.09 Other allergy status, other than to drugs and biological substances; Z79.82 Long term (current) use of aspirin; Z79.4 Long term (current) use of insulin; Z79.899 Other long term (current) drug therapy
CPT/HCPCS: 36415; 70450; 70551; 71020; 80048; 80053; 81001; 82550; 82553; 83735; 84100; 84439; 84443; 84481; 84484; 85025; 85027; 85610; 85730; 93005; 93880; 95819; 99285

== ENCOUNTER → 2016-09-14 | Outpatient (CLI) | payer MEDICARE ==
[2016-09-14 14:51] LABS: Basophils % (A) 1 %; CH 28.4; Eosinophils # (A) 0.1 k/uL (0-0.7); Eosinophils % (A) 2 %; HCT 38.5 % (34.0-46.0); HDW 3.09; HGB 12.3 gm/dL (11.4-16.0); Hypochromasia Slight; Luc # (Auto) 0.09; Luc % (Auto) 2; Lymphocytes # (A) 1.3 k/uL (1.0-4.8); Lymphocytes % (A) 25 %; MCH 28.6 pg (25.0-35.0); MCV 89.3 fL (80.0-100.0); Mean Platelet Volume 7.3; Monocytes # (A) 0.2 k/uL (0-1.0); Monocytes % (A) 4 %; Neutrophils # (A) 3.3 k/uL (1.3-7.7); Neutrophils % (A) 67 %; RBC 4.31 m/uL (3.80-5.40); RDW 14.8 % (11.5-15.5); WBC 4.9 k/uL (3.8-10.6); WBC (Perox) 5.14
[2016-09-14 14:56] LABS: Amorphous Sediment,Urine Rare /hpf; Appearance,Urine Cloudy (Clear); Bacteria,Urine Rare /hpf; Bilirubin,Urine Negative (Negative); Glucose,Urine (UA) 4+ (Negative); Ketones,Urine Negative (Negative); Leukocyte Esterase,Urine Negative (Negative); Mucus,Urine Rare /hpf; Nitrite,Urine Negative (Negative); PH, Urine 6.5 (5.0-8.0); Particle Count 2471; Protein,Urine 3+ (Negative); RBC,Urine 7 /hpf (0-5); Specific Gravity,Urine 1.016 (1.001-1.035); Squamous Epithelial Cell,Urine 1 /hpf (0-4); UA Billing (MACRO vs. MICRO) MICRO; Urobilinogen,Urine <2.0 mg/dL (<2.0); WBC,Urine 22 /hpf (0-5)
[2016-09-14 14:57] LABS: Calcium 8.9 mg/dL (8.4-10.2); Phosphorous 4.9 mg/dL (2.5-4.5); Potassium 4.9 mmol/L (3.5-5.1); Uric Acid 5.6 mg/dL (3.7-7.4)
== END | disposition home or self-care (01) ==
LOC: LABWHC1 14:25
PROVIDERS: ATTEND Nurse Practitioner Family
DX: N18.4 Chronic kidney disease, stage 4 (severe) (principal); E83.39 Other disorders of phosphorus metabolism; E55.9 Vitamin D deficiency, unspecified; D64.9 Anemia, unspecified; M10.9 Gout, unspecified; N39.0 Urinary tract infection, site not specified
CPT/HCPCS: 36415; 80048; 81001; 82040; 82306; 82728; 83540; 83550; 83970; 84100; 84550; 85025

== ENCOUNTER → 2016-10-11 | Outpatient (CLI) | payer MEDICARE ==
[2016-10-11 13:31] LABS: Basophils % (A) 1 %; CH 28.4; CHCM 33.1; Eosinophils # (A) 0.1 k/uL (0-0.7); Eosinophils % (A) 1 %; HCT 36.9 % (34.0-46.0); HDW 3.15; HGB 12.3 gm/dL (11.4-16.0); Luc # (Auto) 0.14; Luc % (Auto) 3; Lymphocytes # (A) 1.1 k/uL (1.0-4.8); Lymphocytes % (A) 20 %; MCH 28.7 pg (25.0-35.0); MCHC 33.3 g/dL (31.0-37.0); MCV 86.3 fL (80.0-100.0); Mean Platelet Volume 7.8; Monocytes # (A) 0.2 k/uL (0-1.0); Monocytes % (A) 4 %; Neutrophils # (A) 3.9 k/uL (1.3-7.7); Neutrophils % (A) 71 %; RBC 4.27 m/uL (3.80-5.40); RDW 14.4 % (11.5-15.5); WBC 5.5 k/uL (3.8-10.6); WBC (Perox) 5.63
[2016-10-11 13:39] LABS: Appearance,Urine Clear (Clear); Bacteria,Urine Rare /hpf; Bilirubin,Urine Negative (Negative); Glucose,Urine (UA) 4+ (Negative); Ketones,Urine Negative (Negative); Leukocyte Esterase,Urine Negative (Negative); Nitrite,Urine Negative (Negative); PH, Urine 6.5 (5.0-8.0); Particle Count 522; Protein,Urine 3+ (Negative); RBC,Urine 1 /hpf (0-5); UA Billing (MACRO vs. MICRO) MICRO; Urobilinogen,Urine <2.0 mg/dL (<2.0); WBC,Urine 2 /hpf (0-5)
[2016-10-11 13:58] LABS: Calcium 9.2 mg/dL (8.4-10.2); Phosphorous 5.2 mg/dL (2.5-4.5); Potassium 4.2 mmol/L (3.5-5.1); Uric Acid 6.8 mg/dL (3.7-7.4)
[2016-10-11 14:07] LABS: % Iron Saturation 24.5 % (20-50)
== END ==
LOC: LABWHC1 12:50
PROVIDERS: ATTEND Nurse Practitioner Family
DX: N18.4 Chronic kidney disease, stage 4 (severe) (principal); E83.39 Other disorders of phosphorus metabolism; M10.9 Gout, unspecified; N39.0 Urinary tract infection, site not specified; E55.9 Vitamin D deficiency, unspecified; D63.1 Anemia in chronic kidney disease
CPT/HCPCS: 36415; 80048; 81001; 82040; 82306; 82728; 83540; 83550; 83970; 84100; 84550; 85025

== ENCOUNTER → 2016-10-27 | Outpatient (CLI) | payer MEDICARE ==
[2016-10-27 11:38] LABS: Appearance,Urine Clear (Clear); Bilirubin,Urine Negative (Negative); Glucose,Urine (UA) 3+ (Negative); Ketones,Urine Negative (Negative); Leukocyte Esterase,Urine Negative (Negative); Nitrite,Urine Negative (Negative); Particle Count 1143; Protein,Urine 3+ (Negative); RBC,Urine 2 /hpf (0-5); UA Billing (MACRO vs. MICRO) MICRO; Urobilinogen,Urine <2.0 mg/dL (<2.0); WBC,Urine 1 /hpf (0-5)
[2016-10-27 12:12] LABS: Calcium 9.3 mg/dL (8.4-10.2); Potassium 4.7 mmol/L (3.5-5.1)
[2016-10-27 12:34] LABS: Hemoglobin A1C 9.1 % (4.2-6.1)
== END | disposition home or self-care (01) ==
LOC: LABWHC1 11:07
PROVIDERS: ATTEND Nurse Practitioner Family
DX: N18.4 Chronic kidney disease, stage 4 (severe) (principal); E83.39 Other disorders of phosphorus metabolism; E10.65 Type 1 diabetes mellitus with hyperglycemia; N39.0 Urinary tract infection, site not specified
CPT/HCPCS: 36415; 80048; 81001; 82040; 83036; 84100

== ENCOUNTER → 2016-12-13 | Outpatient (CLI) | payer MEDICARE ==
[2016-12-13 13:59] LABS: CH 28.3; HCT 38.3 % (34.0-46.0); HDW 3.04; HGB 12.1 gm/dL (11.4-16.0); Hypochromasia Slight; MCHC 31.6 g/dL (31.0-37.0); MCV 88.7 fL (80.0-100.0); Mean Platelet Volume 7.9; RBC 4.32 m/uL (3.80-5.40); RDW 14.6 % (11.5-15.5); WBC 4.9 k/uL (3.8-10.6)
[2016-12-13 14:09] LABS: Appearance,Urine Clear (Clear); Bacteria,Urine Rare /hpf; Bilirubin,Urine Negative (Negative); Glucose,Urine (UA) 4+ (Negative); Ketones,Urine Negative (Negative); Leukocyte Esterase,Urine Negative (Negative); Mucus,Urine Rare /hpf; Nitrite,Urine Negative (Negative); PH, Urine 6.5 (5.0-8.0); Particle Count 3174; Protein,Urine 3+ (Negative); RBC,Urine 3 /hpf (0-5); Specific Gravity,Urine 1.012 (1.001-1.035); UA Billing (MACRO vs. MICRO) MICRO; Urobilinogen,Urine <2.0 mg/dL (<2.0); WBC,Urine 3 /hpf (0-5)
[2016-12-13 14:17] LABS: Calcium 9.3 mg/dL (8.4-10.2); Magnesium 1.9 mg/dL (1.6-2.3); Phosphorous 4.3 mg/dL (2.5-4.5); Potassium 4.7 mmol/L (3.5-5.1); Uric Acid 6.2 mg/dL (3.7-7.4)
[2016-12-13 14:26] LABS: % Iron Saturation 33.6 % (20-50)
[2016-12-13 19:41] LABS: Hemoglobin A1C 8.5 % (4.2-6.1)
== END | disposition home or self-care (01) ==
LOC: LABWHC1 13:33
PROVIDERS: ATTEND Nurse Practitioner Family
DX: E10.65 Type 1 diabetes mellitus with hyperglycemia (principal); E83.39 Other disorders of phosphorus metabolism; N18.4 Chronic kidney disease, stage 4 (severe); D64.9 Anemia, unspecified; E21.3 Hyperparathyroidism, unspecified; E55.9 Vitamin D deficiency, unspecified; N39.0 Urinary tract infection, site not specified; M10.9 Gout, unspecified
CPT/HCPCS: 36415; 80048; 81001; 82040; 82306; 82728; 83036; 83540; 83550; 83735; 83970; 84100; 84550; 85027

== ENCOUNTER → 2017-01-03 | Outpatient (CLI) | payer MEDICARE | END | disposition home or self-care (01) | LOC: LABWHC1 07:00 | PROVIDERS: ATTEND Nurse Practitioner Family | DX: I12.9 Hypertensive chronic kidney disease with stage 1 through stage 4 chronic kidney disease, or unspecified chronic kidney disease (principal); N18.3 Chronic kidney disease, stage 3 (moderate) | CPT/HCPCS: 36415; 84132 ==

== ENCOUNTER → 2017-01-17 | Outpatient (CLI) | payer MEDICARE ==
[2017-01-17 12:08] LABS: Appearance,Urine Cloudy (Clear); Bacteria,Urine Many /hpf; Bilirubin,Urine Negative (Negative); Glucose,Urine (UA) 4+ (Negative); Ketones,Urine Negative (Negative); Leukocyte Esterase,Urine Large (Negative); Mucus,Urine Few /hpf; Nitrite,Urine Positive (Negative); Particle Count 20613; Protein,Urine 3+ (Negative); RBC,Urine 35 /hpf (0-5); Specific Gravity,Urine 1.013 (1.001-1.035); UA Billing (MACRO vs. MICRO) MICRO; Urobilinogen,Urine <2.0 mg/dL (<2.0); WBC,Urine >182 /hpf (0-5)
[2017-01-17 12:34] LABS: CH 27.5; CHCM 31.9; HCT 30.2 % (34.0-46.0); HDW 3.25; HGB 10.3 gm/dL (11.4-16.0); Hypochromasia Slight; MCH 29.3 pg (25.0-35.0); MCHC 33.9 g/dL (31.0-37.0); MCV 86.3 fL (80.0-100.0); Mean Platelet Volume 7.4; WBC 7.5 k/uL (3.8-10.6)
[2017-01-17 12:45] LABS: Calcium 8.5 mg/dL (8.4-10.2); Magnesium 1.8 mg/dL (1.6-2.3); Phosphorous 6.4 mg/dL (2.5-4.5); Potassium 4.4 mmol/L (3.5-5.1); Uric Acid 6.5 mg/dL (3.7-7.4)
[2017-01-17 14:01] LABS: Hemoglobin A1C 8.3 % (4.2-6.1)
[2017-01-17 14:39] LABS: % Iron Saturation 18.8 % (20-50)
== END | disposition home or self-care (01) ==
LOC: LABWHC1 11:10
PROVIDERS: ATTEND Nurse Practitioner Family
DX: D64.9 Anemia, unspecified (principal); E10.65 Type 1 diabetes mellitus with hyperglycemia; E55.9 Vitamin D deficiency, unspecified; E21.3 Hyperparathyroidism, unspecified; N18.4 Chronic kidney disease, stage 4 (severe); N39.0 Urinary tract infection, site not specified; M10.9 Gout, unspecified
CPT/HCPCS: 36415; 80048; 81001; 82040; 82306; 82728; 83036; 83540; 83550; 83735; 83970; 84100; 84550; 85027

== ENCOUNTER 2017-01-26 10:01 | Inpatient (IN) | payer MEDICARE ==
--- NOTE | 2017-01-26 10:42 | ED ---
General Adult HPI - General Chief complaint: Nausea/Vomiting/Diarrhea Stated complaint: Nausea/Vomiting Time Seen by Provider: 01/26/17 10:41 Source: patient, EMS Mode of arrival: EMS - History of Present Illness Initial comments: Patient is a 56-year-old female with past medical history of poorly controlled insulin-dependent diabetes who presents to the emergency department for evaluation of nausea and vomiting. Initial history was obtained from the patient's as the patient was actively vomiting and unable to speak for herself. reports the patient has poorly controlled diabetes, chronic kidney disease and is currently being treated for a foot ulcer with by mouth clindamycin. Patient developed nausea and nonbloody nonbilious emesis last night. The emesis has continued throughout the morning, this morning they noted some blood streaking in her vomitus which prompted the to call 911 for transfer to the hospital. In route to the hospital the patient received fluids and 4 mg of IV Zofran without any resolution of her nausea. An [id number] blood glucose was determined to be 475, states that this happens to the patient occasionally, he is unsure if she has ever been in DKA. - Related Data Home Medications Medication Instructions Recorded Confirmed Aspirin EC [Ecotrin Low Dose] 81 mg PO DAILY 07/26/16 01/26/17 Atorvastatin [Lipitor] 40 mg PO DAILY 07/26/16 01/26/17 Ergocalciferol [Vitamin D2 50,000 unit PO Q14D 07/26/16 01/26/17 (DRISDOL)] Insulin Aspart [NovoLOG] 18 unit SQ AC-TID 07/26/16 01/26/17 Metoclopramide [Reglan] 5 mg PO TID 07/26/16 01/26/17 amLODIPine [Norvasc] 10 mg PO DAILY 07/26/16 01/26/17 Calcitriol 0.25 mcg PO Q7D 01/26/17 01/26/17 Calcium Acetate [Phoslo] 667 mg PO DAILY 01/26/17 01/26/17 Chlorthalidone [Hygroton] 25 mg PO DAILY 01/26/17 01/26/17 Insulin Glargine,Hum.rec.anlog 50 unit SQ BID 01/26/17 01/26/17 [Lantus Solostar] Spironolactone [Aldactone] 25 mg PO DAILY 01/26/17 01/26/17 Torsemide [Demadex] 40 mg PO Q48H 01/26/17 01/26/17 Allergies Allergy/AdvReac Type Severity Reaction Status Date / Time Latex, Natural Rubber Allergy Rash/Hives Verified 01/26/17 10:17 Penicillins Allergy Rash/Hives Verified 01/26/17 10:17 propoxyphene napsylate AdvReac Nausea & Verified 01/26/17 10:17 [From Conor-N] Vomiting Review of Systems ROS Statement: Those systems with pertinent positive or pertinent negative responses have been documented in the HPI. ROS Other: All systems not noted in ROS Statement are negative. Constitutional: Reports: chills Endocrine: Reports: fatigue Gastrointestinal: Reports: abdominal pain, nausea, vomiting Past Medical History Past Medical History: Diabetes Mellitus, Hyperlipidemia, Hypertension, Renal Disease Additional Past Medical History / Comment(s): retinopathy,neuropathy," ckd stage 4", "charcot foot" History of Any Multi-Drug Resistant Organisms: None Reported Past Surgical History: Cholecystectomy, Hysterectomy, Orthopedic Surgery, Tonsillectomy Additional Past Surgical History / Comment(s): cataract surgery-lens implants, partial hysterectomy, myomectomy, teddy foot sx bone removed and in the rt foot has plate/screws, ovaries bx-neg Past Anesthesia/Blood Transfusion Reactions: Postoperative Nausea & Vomiting ( PONV) Past Psychological History: Depression Smoking Status: Never smoker Past Alcohol Use History: None Reported Past Drug Use History: None Reported - Past Family History Father Additional Family Medical History / Comment(s): at age 45 from "coronary thrombus" Mother Family Medical History: COPD, Diabetes Mellitus General Exam General appearance: alert, other (Actively vomiting, appears uncomfortable) Head exam: Present: atraumatic, normocephalic, normal inspection ENT exam: Present: mucous membranes moist Neck exam: Present: full ROM Course Vital Signs 01/26/17 01/26/17 01/26/17 10:04 11:07 13:41 Temperature 97.1 F L Pulse Rate 109 H 107 H 110 H Respiratory 20 20 16 Rate Blood Pressure 204/95 185/83 204/92 O2 Sat by Pulse 96 98 99 Oximetry 01/26/17 01/26/17 01/26/17 13:55 14:03 14:23 Temperature Pulse Rate 94 Respiratory 105 H Rate Blood Pressure 189/86 179/70 191/83 O2 Sat by Pulse Oximetry - Reevaluation(s) Reevaluation #1: She reported no improvement in her nausea after Reglan and Benadryl, patient is still nauseated and heaving. Reevaluation #2: Patient reports improvement in her nausea after Phenergan, is now able speak without heaving or vomiting. She denies any abdominal pain, she denies any complaints aside from the nausea and vomiting. Medical Decision Making - Medical Decision Making Patient seen and evaluated History is obtained from the patient's as the patient was actively vomiting spite being given Zofran in route to the hospital Prehospital blood glucose was 475, there is concern for dehydration as well as DKA, labs and IV fluids were ordered Reglan and Benadryl were ordered for nausea Pepcid was ordered GI prophylaxis given the patient is having blood streaking in her vomitus With persistent nausea and vomiting after Reglan and Benadryl, Phenergan ordered Lab reveal hyperglycemia, acute kidney injury additional 1 L normal saline bolus was ordered Units of IV insulin ordered glucose remains elevated, results were discussed with the patient who states usually give herself 18 units of insulin for glucose is elevated, and units of IV insulin ordered Patient noted to be hypertensive and tachycardic, this likely related to acute renal injury, IV labetalol ordered Care was discussed with Dr. Rebolledo who accepts admission for nausea, vomiting, dehydration, acute kidney injury, hyperglycemia without evidence of DKA Admission orders placed - Lab Data Result diagrams: 01/26/17 10:05 01/26/17 10:05 Lab Results 01/26/17 01/26/17 01/26/17 Range/Units 10:05 10:05 10:05 WBC 10.7 H (3.8-10.6) k/uL RBC 4.24 (3.80-5.40) m/uL Hgb 12.4 (11.4-16.0) gm/dL Hct 35.4 (34.0-46.0) % MCV 83.4 (80.0-100.0) fL MCH 29.1 (25.0-35.0) pg MCHC 34.9 (31.0-37.0) g/dL RDW 15.5 (11.5-15.5) % Plt Count 253 (150-450) k/uL Neutrophils % 90 % Lymphocytes % 8 % Monocytes % 2 % Eosinophils % 0 % Basophils % 0 % Neutrophils # 9.5 H (1.3-7.7) k/uL Lymphocytes # 0.8 L (1.0-4.8) k/uL Monocytes # 0.2 (0-1.0) k/uL Eosinophils # 0.0 (0-0.7) k/uL Basophils # 0.0 (0-0.2) k/uL VBG pH (7.31-7.41) VBG pCO2 (37-51) mmHg VBG HCO3 (24-28) mmol/L Sodium 139 (137-145) mmol/L Potassium 4.3 (3.5-5.1) mmol/L Chloride 106 (98-107) mmol/L Carbon Dioxide 16 L (22-30) mmol/L Anion Gap 17 mmol/L BUN 61 H (7-17) mg/dL Creatinine 3.70 H (0.52-1.04) mg/dL Est GFR (MDRD) Af Amer 15 (>60 ml/min/1.73 sqM) Est GFR (MDRD) Non-Af 13 (>60 ml/min/1.73 sqM) Glucose 471 H* (74-99) mg/dL POC Glucose (mg/dL) (75-99) mg/dL POC Glu Java Spring Developer ID Lactic Ac Sepsis Rflx Plasma Lactic Acid Carroll 2.1 H* (0.7-2.0) mmol/L Calcium 9.4 (8.4-10.2) mg/dL Total Bilirubin 0.5 (0.2-1.3) mg/dL AST 17 (14-36) U/L ALT 28 (9-52) U/L Alkaline Phosphatase 125 (38-126) U/L Total Protein 7.2 (6.3-8.2) g/dL Albumin 3.7 (3.5-5.0) g/dL Lipase 109 (23-300) U/L Urine Color Urine Appearance (Clear) Urine pH (5.0-8.0) Ur Specific [place] (1.001-1.035) Urine Protein (Negative) Urine Glucose (UA) (Negative) Urine Ketones (Negative) Urine Blood (Negative) Urine Nitrite (Negative) Urine Bilirubin (Negative) Urine Urobilinogen (<2.0) mg/dL Ur Leukocyte Esterase (Negative) Urine RBC (0-5) /hpf Urine WBC (0-5) /hpf Ur Squamous Epith Cells (0-4) /hpf Urine Bacteria (None) /hpf Hyaline Casts (0-2) /lpf Urine Mucus (None) /hpf Acetone, Qual Positive (Negative) 01/26/17 01/26/17 01/26/17 Range/Units 11:21 11:46 12:20 WBC (3.8-10.6) k/uL RBC (3.80-5.40) m/uL Hgb (11.4-16.0) gm/dL Hct (34.0-46.0) % MCV (80.0-100.0) fL MCH (25.0-35.0) pg MCHC (31.0-37.0) g/dL RDW (11.5-15.5) % Plt Count (150-450) k/uL Neutrophils % % Lymphocytes % % Monocytes % % Eosinophils % % Basophils % % Neutrophils # (1.3-7.7) k/uL Lymphocytes # (1.0-4.8) k/uL Monocytes # (0-1.0) k/uL Eosinophils # (0-0.7) k/uL Basophils # (0-0.2) k/uL VBG pH 7.33 (7.31-7.41) VBG pCO2 31 L (37-51) mmHg VBG HCO3 16 L (24-28) mmol/L Sodium (137-145) mmol/L Potassium (3.5-5.1) mmol/L Chloride (98-107) mmol/L Carbon Dioxide (22-30) mmol/L Anion Gap mmol/L BUN (7-17) mg/dL Creatinine (0.52-1.04) mg/dL Est GFR (MDRD) Af Amer (>60 ml/min/1.73 sqM) Est GFR (MDRD) Non-Af (>60 ml/min/1.73 sqM) Glucose (74-99) mg/dL POC Glucose (mg/dL) (75-99) mg/dL POC Glu Java Spring Developer ID Lactic Ac Sepsis Rflx Y Plasma Lactic Acid Carroll (0.7-2.0) mmol/L Calcium (8.4-10.2) mg/dL Total Bilirubin (0.2-1.3) mg/dL AST (14-36) U/L ALT (9-52) U/L Alkaline Phosphatase (38-126) U/L Total Protein (6.3-8.2) g/dL Albumin (3.5-5.0) g/dL Lipase (23-300) U/L Urine Color Light Yellow Urine Appearance Cloudy H (Clear) Urine pH 6.0 (5.0-8.0) Ur Specific [place] 1.012 (1.001-1.035) Urine Protein 3+ H (Negative) Urine Glucose (UA) 4+ H (Negative) Urine Ketones 1+ H (Negative) Urine Blood Small H (Negative) Urine Nitrite Positive H (Negative) Urine Bilirubin Negative (Negative) Urine Urobilinogen <2.0 (<2.0) mg/dL Ur Leukocyte Esterase Small H (Negative) Urine RBC 35 H (0-5) /hpf Urine WBC 34 H (0-5) /hpf Ur Squamous Epith Cells 1 (0-4) /hpf Urine Bacteria Moderate H (None) /hpf Hyaline Casts 3 H (0-2) /lpf Urine Mucus Rare H (None) /hpf Acetone, Qual (Negative) 01/26/17 01/26/17 Range/Units 12:56 13:29 WBC (3.8-10.6) k/uL RBC (3.80-5.40) m/uL Hgb (11.4-16.0) gm/dL Hct (34.0-46.0) % MCV (80.0-100.0) fL MCH (25.0-35.0) pg MCHC (31.0-37.0) g/dL RDW (11.5-15.5) % Plt Count (150-450) k/uL Neutrophils % % Lymphocytes % % Monocytes % % Eosinophils % % Basophils % % Neutrophils # (1.3-7.7) k/uL Lymphocytes # (1.0-4.8) k/uL Monocytes # (0-1.0) k/uL Eosinophils # (0-0.7) k/uL Basophils # (0-0.2) k/uL VBG pH (7.31-7.41) VBG pCO2 (37-51) mmHg VBG HCO3 (24-28) mmol/L Sodium (137-145) mmol/L Potassium (3.5-5.1) mmol/L Chloride (98-107) mmol/L Carbon Dioxide (22-30) mmol/L Anion Gap mmol/L BUN (7-17) mg/dL Creatinine (0.52-1.04) mg/dL Est GFR (MDRD) Af Amer (>60 ml/min/1.73 sqM) Est GFR (MDRD) Non-Af (>60 ml/min/1.73 sqM) Glucose (74-99) mg/dL POC Glucose (mg/dL) 484 H 465 H (75-99) mg/dL POC Glu Java Spring Developer ID Cathy Herrera Nicole Lactic Ac Sepsis Rflx Plasma Lactic Acid Carroll (0.7-2.0) mmol/L Calcium (8.4-10.2) mg/dL Total Bilirubin (0.2-1.3) mg/dL AST (14-36) U/L ALT (9-52) U/L Alkaline Phosphatase (38-126) U/L Total Protein (6.3-8.2) g/dL Albumin (3.5-5.0) g/dL Lipase (23-300) U/L Urine Color Urine Appearance (Clear) Urine pH (5.0-8.0) Ur Specific [place] (1.001-1.035) Urine Protein (Negative) Urine Glucose (UA) (Negative) Urine Ketones (Negative) Urine Blood (Negative) Urine Nitrite (Negative) Urine Bilirubin (Negative) Urine Urobilinogen (<2.0) mg/dL Ur Leukocyte Esterase (Negative) Urine RBC (0-5) /hpf Urine WBC (0-5) /hpf Ur Squamous Epith Cells (0-4) /hpf Urine Bacteria (None) /hpf Hyaline Casts (0-2) /lpf Urine Mucus (None) /hpf Acetone, Qual (Negative) Disposition Clinical Impression: Dehydration, DREW (acute kidney injury), Hyperglycemia, Nausea and vomiting, Hematemesis Disposition: ADMITTED IP TO THIS HOSP Referrals: Pawan Villasenor MD [Primary Care Provider] - 1-2 days
[2017-01-26] MEDS ORDERED: FAMOTIDINE 20 MG/2 ML VIAL IV STA (10:51)
[2017-01-26] MEDS ORDERED: diphenhydrAMINE 50 MG/ML 1 ML VIAL IVP STA (10:51)
[2017-01-26] MEDS ORDERED: METOCLOPRAMIDE 5 MG/ML 2 ML VIAL IVP STA (10:51)
[2017-01-26] MEDS ORDERED: SODIUM CHLORIDE 0.9% 1,000 ML IV ONE ×2 (10:52→13:43)
[2017-01-26 11:19] LABS: Basophils % (A) 0 %; CH 27.5; CHCM 33.1; Eosinophils % (A) 0 %; HCT 35.4 % (34.0-46.0); HDW 3.39; HGB 12.4 gm/dL (11.4-16.0); Luc # (Auto) 0.04; Luc % (Auto) 0; Lymphocytes # (A) 0.8 k/uL (1.0-4.8); Lymphocytes % (A) 8 %; MCH 29.1 pg (25.0-35.0); MCHC 34.9 g/dL (31.0-37.0); MCV 83.4 fL (80.0-100.0); Mean Platelet Volume 7.8; Monocytes # (A) 0.2 k/uL (0-1.0); Monocytes % (A) 2 %; Neutrophils # (A) 9.5 k/uL (1.3-7.7); Neutrophils % (A) 90 %; RBC 4.24 m/uL (3.80-5.40); RDW 15.5 % (11.5-15.5); WBC 10.7 k/uL (3.8-10.6); WBC (Perox) 9.72
[2017-01-26 11:35] LABS: ALT 28 U/L (9-52); AST 17 U/L (14-36); Alkaline Phosphatase 125 U/L (38-126); Anion Gap 17 mmol/L; Blood Urea Nitrogen 61 mg/dL (7-17); Calcium 9.4 mg/dL (8.4-10.2); Carbon Dioxide 16 mmol/L (22-30); Chloride 106 mmol/L (98-107); Potassium 4.3 mmol/L (3.5-5.1); Sodium 139 mmol/L (137-145); Total Bilirubin 0.5 mg/dL (0.2-1.3); Total Protein 7.2 g/dL (6.3-8.2)
[2017-01-26 11:42] LABS: VBG PH 7.33 (7.31-7.41)
[2017-01-26 11:49] LABS: Glucose 471 mg/dL (74-99); Non-African American GFR(MDRD) 13 (>60 ml/min/1.73 sqM)
[2017-01-26] MEDS ORDERED: INSULIN REGULAR 100 UNIT/ML VIAL IV ONE ×3 (11:57→16:29)
[2017-01-26] MEDS ORDERED: PROMETHAZINE INJ 25 MG in SODIUM CHLORIDE 0.9% 50 ML IVPB ONE (12:32)
[2017-01-26 12:51] LABS: Appearance,Urine Cloudy (Clear); Bacteria,Urine Moderate /hpf; Bilirubin,Urine Negative (Negative); Glucose,Urine (UA) 4+ (Negative); Ketones,Urine 1+ (Negative); Leukocyte Esterase,Urine Small (Negative); Mucus,Urine Rare /hpf; Nitrite,Urine Positive (Negative); Particle Count 30094; Protein,Urine 3+ (Negative); RBC,Urine 35 /hpf (0-5); Specific Gravity,Urine 1.012 (1.001-1.035); Squamous Epithelial Cell,Urine 1 /hpf (0-4); UA Billing (MACRO vs. MICRO) MICRO; Urobilinogen,Urine <2.0 mg/dL (<2.0); WBC,Urine 34 /hpf (0-5)
[2017-01-26 12:57] LABS: Glucose,Whole Blood 484 mg/dL (75-99)
[2017-01-26 13:31] LABS: Glucose,Whole Blood 465 mg/dL (75-99)
--- NOTE | 2017-01-26 13:39 | XR ---
EXAMINATION TYPE: XR abdomen acute w cxr DATE OF EXAM: 01/26/2017 COMPARISON: Prior abdomen films dated 04/29/2011 HISTORY: Nausea and vomiting, hiatal hernia TECHNIQUE: Supine, upright views of the abdomen are obtained. Frontal chest x-ray obtained on a tota l of 4 images FINDINGS: Chest x-ray shows no acute cardiopulmonary disease. Artifact noted. There is no evidence for pneumoperitoneum. Surgical clips present in the right upper and lower quadr ants. Probable vascular calcifications within the pelvis. The bowel gas pattern is unremarkable as there is air throughout nondilated small and large bowel. No sizeable air fluid levels. There is a paucity of bowel gas. No mass effects are seen. No unusual calcifications. IMPRESSION: Possibility of bowel gas is nonspecific, consider additional imaging as indicated if bowel obstructio n is suspected clinically.
[2017-01-26] MEDS ORDERED: METOPROLOL TARTRATE 5 MG/5 ML VIAL IVP STA (13:48)
[2017-01-26] MEDS: SODIUM CHLORIDE 0.9% 1,000 ML IV SCH ×2 (13:57→21:41)
[2017-01-26] MEDS ORDERED: NALOXONE 0.4 MG/ML 1 ML VIAL IV PRN (14:51)
[2017-01-26 15:10] LABS: Glucose,Whole Blood 403 mg/dL (75-99)
[2017-01-26 15:52] LABS: Glucose,Whole Blood 439 mg/dL (75-99)
[2017-01-26] MEDS ORDERED: METOCLOPRAMIDE 5 MG TAB PO SCH (16:00)
[2017-01-26 16:52] LABS: Glucose,Whole Blood 431 mg/dL (75-99)
--- NOTE | 2017-01-26 17:20 | P.HPIM ---
History of Present Illness Patient is a 56-year-old female with past medical history of poorly controlled insulin-dependent diabetes who presents to the emergency department for evaluation of nausea and vomiting was going on is last night. Patient is quite dehydrated patient's baseline creatinine appears to be around 3. She is on the 2 diuretics which contributed to her dehydration patient is on diuretics for the bilateral lower limb swelling and patient does have peripheral neuropathy and does have couple diabetic ulcers in the left anterior aspect patient is mostly nonambulatory. She was complaining of dysuria does have abnormal urine. Patient will be started on antibiotics as well for that and patient was started on IV fluids. Hold off on diuretic therapy. And the patient has some streaks of blood in her vomitus. Patient does have highly elevated blood sugar secondary to stress since [place] and she is compliant with her medications. Review of Systems REVIEW OF SYSTEMS: CONSTITUTIONAL: No fever, no malaise, no fatigue. HEENT: No recent visual problems or hearing problems. Denied any sore throat. CARDIOVASCULAR: No chest pain, orthopnea, PND, no palpitations, no syncope. PULMONARY: No shortness of breath, no cough, no hemoptysis. GASTROINTESTINAL: As described in HPI NEUROLOGICAL: No headaches, no weakness, no numbness. HEMATOLOGICAL: Denies any bleeding or petechiae. GENITOURINARY: Denies any burning micturition, frequency, or urgency. MUSCULOSKELETAL/RHEUMATOLOGICAL: Denies any joint pain, swelling, or any muscle pain. ENDOCRINE: Denies any polyuria or polydipsia. The rest of the 14-point review of systems is negative. Past Medical History Past Medical History: Diabetes Mellitus, Hyperlipidemia, Hypertension, Renal Disease Additional Past Medical History / Comment(s): retinopathy,neuropathy," ckd stage 4", "charcot foot" History of Any Multi-Drug Resistant Organisms: None Reported Past Surgical History: Cholecystectomy, Hysterectomy, Orthopedic Surgery, Tonsillectomy Additional Past Surgical History / Comment(s): cataract surgery-lens implants, partial hysterectomy, myomectomy, teddy foot sx bone removed and in the rt foot has plate/screws, ovaries bx-neg Past Anesthesia/Blood Transfusion Reactions: Postoperative Nausea & Vomiting ( PONV) Past Psychological History: Depression Smoking Status: Never smoker Past Alcohol Use History: None Reported Past Drug Use History: None Reported - Past Family History Father Additional Family Medical History / Comment(s): at age 45 from "coronary thrombus" Mother Family Medical History: COPD, Diabetes Mellitus Medications and Allergies Home Medications Medication Instructions Recorded Confirmed Type Aspirin EC [Ecotrin Low Dose] 81 mg PO DAILY 07/26/16 01/26/17 History Atorvastatin [Lipitor] 40 mg PO DAILY 07/26/16 01/26/17 History Ergocalciferol [Vitamin D2 50,000 unit PO Q14D 07/26/16 01/26/17 History (DRISDOL)] Insulin Aspart [NovoLOG] 18 unit SQ AC-TID 07/26/16 01/26/17 History Metoclopramide [Reglan] 5 mg PO TID 07/26/16 01/26/17 History amLODIPine [Norvasc] 10 mg PO DAILY 07/26/16 01/26/17 History Calcitriol 0.25 mcg PO Q7D 01/26/17 01/26/17 History Calcium Acetate [Phoslo] 667 mg PO DAILY 01/26/17 01/26/17 History Chlorthalidone [Hygroton] 25 mg PO DAILY 01/26/17 01/26/17 History Insulin Glargine,Hum.rec.anlog 50 unit SQ BID 01/26/17 01/26/17 History [Lantus Solostar] Spironolactone [Aldactone] 25 mg PO DAILY 01/26/17 01/26/17 History Torsemide [Demadex] 40 mg PO Q48H 01/26/17 01/26/17 History Allergies Allergy/AdvReac Type Severity Reaction Status Date / Time Latex, Natural Rubber Allergy Rash/Hives Verified 01/26/17 10:17 Penicillins Allergy Rash/Hives Verified 01/26/17 10:17 propoxyphene napsylate AdvReac Nausea & Verified 01/26/17 10:17 [From Conor-Mike] Vomiting Physical Exam Vitals: Vital Signs Temp Pulse Resp BP Pulse Ox 01/26/17 15:33 99 F 108 H 21 170/77 95 01/26/17 14:23 105 H 191/83 01/26/17 14:03 94 179/70 01/26/17 13:55 189/86 01/26/17 13:41 110 H 16 204/92 99 01/26/17 11:07 107 H 20 185/83 98 01/26/17 10:04 97.1 F L 109 H 20 204/95 96 Intake and Output 01/26/17 01/26/17 01/26/17 06:59 14:59 22:59 Other: Weight 89.358 kg Patient Weight 01/27/17 06:59 Weight 89.358 kg PHYSICAL EXAMINATION: GENERAL: The patient is alert and oriented x3, not in any acute distress. Well developed, well nourished. She is in distress because of vomiting and retching. HEENT: Pupils are round and equally reacting to light. EOMI. No scleral icterus. No conjunctival pallor. Normocephalic, atraumatic. No pharyngeal erythema. No thyromegaly. CARDIOVASCULAR: S1 and S2 present. No murmurs, rubs, or gallops. PULMONARY: Chest is clear to auscultation, no wheezing or crackles. ABDOMEN: Soft, nontender, nondistended, normoactive bowel sounds. No palpable organomegaly. MUSCULOSKELETAL: No joint swelling or deformity. EXTREMITIES: No cyanosis, clubbing, or pedal edema. NEUROLOGICAL: Gross neurological examination did not reveal any new focal deficits. SKIN: She does have noninfected stage II ulcers couple of them on the dorsal aspect of the left foot. Results CBC & Chem 7: 01/26/17 10:05 01/26/17 10:05 Labs: Abnormal Lab Results - Last 24 Hours (Table) 01/26/17 01/26/17 01/26/17 Range/Units 10:05 10:05 10:05 WBC 10.7 H (3.8-10.6) k/uL Neutrophils # 9.5 H (1.3-7.7) k/uL Lymphocytes # 0.8 L (1.0-4.8) k/uL VBG pCO2 (37-51) mmHg VBG HCO3 (24-28) mmol/L Carbon Dioxide 16 L (22-30) mmol/L BUN 61 H (7-17) mg/dL Creatinine 3.70 H (0.52-1.04) mg/dL Glucose 471 H* (74-99) mg/dL POC Glucose (mg/dL) (75-99) mg/dL Plasma Lactic Acid Carroll 2.1 H* (0.7-2.0) mmol/L Urine Appearance (Clear) Urine Protein (Negative) Urine Glucose (UA) (Negative) Urine Ketones (Negative) Urine Blood (Negative) Urine Nitrite (Negative) Ur Leukocyte Esterase (Negative) Urine RBC (0-5) /hpf Urine WBC (0-5) /hpf Urine Bacteria (None) /hpf Hyaline Casts (0-2) /lpf Urine Mucus (None) /hpf 01/26/17 01/26/17 01/26/17 Range/Units 11:21 12:20 12:56 WBC (3.8-10.6) k/uL Neutrophils # (1.3-7.7) k/uL Lymphocytes # (1.0-4.8) k/uL VBG pCO2 31 L (37-51) mmHg VBG HCO3 16 L (24-28) mmol/L Carbon Dioxide (22-30) mmol/L BUN (7-17) mg/dL Creatinine (0.52-1.04) mg/dL Glucose (74-99) mg/dL POC Glucose (mg/dL) 484 H (75-99) mg/dL Plasma Lactic Acid [place] (0.7-2.0) mmol/L Urine Appearance Cloudy H (Clear) Urine Protein 3+ H (Negative) Urine Glucose (UA) 4+ H (Negative) Urine Ketones 1+ H (Negative) Urine Blood Small H (Negative) Urine Nitrite Positive H (Negative) Ur Leukocyte Esterase Small H (Negative) Urine RBC 35 H (0-5) /hpf Urine WBC 34 H (0-5) /hpf Urine Bacteria Moderate H (None) /hpf Hyaline Casts 3 H (0-2) /lpf Urine Mucus Rare H (None) /hpf 01/26/17 01/26/17 01/26/17 Range/Units 13:29 15:08 15:30 WBC (3.8-10.6) k/uL Neutrophils # (1.3-7.7) k/uL Lymphocytes # (1.0-4.8) k/uL VBG pCO2 (37-51) mmHg VBG HCO3 (24-28) mmol/L Carbon Dioxide (22-30) mmol/L BUN (7-17) mg/dL Creatinine (0.52-1.04) mg/dL Glucose (74-99) mg/dL POC Glucose (mg/dL) 465 H 403 H (75-99) mg/dL Plasma Lactic Acid [place] 2.2 H* (0.7-2.0) mmol/L Urine Appearance (Clear) Urine Protein (Negative) Urine Glucose (UA) (Negative) Urine Ketones (Negative) Urine Blood (Negative) Urine Nitrite (Negative) Ur Leukocyte Esterase (Negative) Urine RBC (0-5) /hpf Urine WBC (0-5) /hpf Urine Bacteria (None) /hpf Hyaline Casts (0-2) /lpf Urine Mucus (None) /hpf 01/26/17 01/26/17 Range/Units 15:51 16:50 WBC (3.8-10.6) k/uL Neutrophils # (1.3-7.7) k/uL Lymphocytes # (1.0-4.8) k/uL VBG pCO2 (37-51) mmHg VBG HCO3 (24-28) mmol/L Carbon Dioxide (22-30) mmol/L BUN (7-17) mg/dL Creatinine (0.52-1.04) mg/dL Glucose (74-99) mg/dL POC Glucose (mg/dL) 439 H 431 H (75-99) mg/dL Plasma Lactic Acid [place] (0.7-2.0) mmol/L Urine Appearance (Clear) Urine Protein (Negative) Urine Glucose (UA) (Negative) Urine Ketones (Negative) Urine Blood (Negative) Urine Nitrite (Negative) Ur Leukocyte Esterase (Negative) Urine RBC (0-5) /hpf Urine WBC (0-5) /hpf Urine Bacteria (None) /hpf Hyaline Casts (0-2) /lpf Urine Mucus (None) /hpf Assessment and Plan Plan: #1 intractable nausea and vomiting probably due to gastroparesis gastritis and peptic ulcer disease need to be considered as a property of upper GI bedazzled patient was started on IV Protonix. Patient recently underwent upper GI endoscopy patient does have hiatal hernia and patient will also be started on Reglan. Patient was started on IV fluids. Holding off diuretic therapy. #2 acute renal failure secondary to proliferative ischemia from nausea vomiting and also polyuria from hyperglycemia. Patient was started on IV fluids hold holding off on diuretic therapy. #3 diabetic nephropathy leading to stage IV chronic kidney disease. #4 diabetic neuropathy. With diabetic foot ulcers for which patient will need local wound care. #5 leukocytosis reactive in nature. #6 tachycardia secondary to intravascular and patient for which patient was being started on IV fluids as mentioned above. #7 lactic acidosis due to severe intravascular volume depletion along with possible urinary tract infection. #8 possible urinary tract infection: For which patient was started on Rocephin.
[2017-01-26] MEDS: METOCLOPRAMIDE 5 MG/ML 2 ML VIAL IVP PRN (18:00)
[2017-01-26] MEDS: INSULIN LISPRO (humaLOG) 300 UNIT/3 ML VIAL SQ SCH ×2 (18:01→21:41)
[2017-01-26 18:04] LABS: Glucose,Whole Blood 365 mg/dL (75-99)
[2017-01-26] MEDS: HYDROcodone/APAP 7.5-325MG 1 EACH TAB PO PRN (20:08)
[2017-01-26] MEDS: PANTOPRAZOLE 40 MG/10 ML VIAL IV SCH (20:09)
[2017-01-26 20:46] LABS: Glucose,Whole Blood 307 mg/dL (75-99)
[2017-01-26] MEDS ORDERED: INSULIN LISPRO (humaLOG) 300 UNIT/3 ML VIAL SQ ONE (21:38)
[2017-01-26] MEDS: INSULIN GLARGINE 100 UNIT/ML 10 ML VIAL SQ SCH (21:41)
[2017-01-26 22:06] LABS: Hemoglobin A1C 8.7 % (4.2-6.1)
[2017-01-27 00:07] LABS: Glucose,Whole Blood 211 mg/dL (75-99)
[2017-01-27 04:03] LABS: Glucose,Whole Blood 163 mg/dL (75-99)
[2017-01-27 07:18] LABS: Glucose,Whole Blood 201 mg/dL (75-99)
[2017-01-27] MEDS: INSULIN LISPRO (humaLOG) 300 UNIT/3 ML VIAL SQ SCH ×7 (08:27→20:48)
[2017-01-27] MEDS: ASPIRIN 81 MG CHEW PO SCH (08:30)
[2017-01-27] MEDS: CALCIUM ACETATE 667 MG CAP PO SCH (08:30)
[2017-01-27] MEDS: ATORVASTATIN 40 MG TAB PO SCH (08:30)
[2017-01-27] MEDS: amLODIPine 10 MG TAB PO SCH (08:30)
[2017-01-27] MEDS: INSULIN GLARGINE 100 UNIT/ML 10 ML VIAL SQ SCH ×2 (08:31→20:47)
[2017-01-27] MEDS: PANTOPRAZOLE 40 MG/10 ML VIAL IV SCH ×2 (08:31→21:52)
[2017-01-27] MEDS ORDERED: PANTOPRAZOLE 40 MG/10 ML VIAL IV SCH (09:00)
--- NOTE | 2017-01-27 10:12 | P.NPCON ---
History of Present Illness - Reason for Consult chronic renal failure - History of Present Illness Reason for consultation: Acute kidney injury on chronic kidney disease History of present illness: Patient is a 56-year-old female seen in renal consultation for acute kidney injury on chronic kidney disease. Patient has chronic kidney disease stage IV secondary to diabetic kidney disease with baseline creatinine near 2.5-2.7 range. Patient presented to the hospital with nausea and vomiting that started night and had multiple episodes up until Sunday night when she came to the hospital. She denies any chest pain or shortness of breath. Patient also states that her blood sugars have been running high specially when she is stressed. At the time of admission her blood sugar was 475 and is now better controlled. She admits to good urine output. No hematuria or dysuria. Hemodynamically she is stable. Her lactic acid was elevated at 2.2. She did receive 2 L of IV fluid bolus on admission and lactic acid level was 1.1 when repeated. Currently she is resting in bed. She feels well. She isn't a clear liquid diet denies use of NSAIDs. She has a AV fistula in her left upper extremity which is currently maturing. Vital signs are stable. General: The patient appeared well nourished and normally developed. HEENT: Head exam is unremarkable. Neck is without jugular venous distension. LUNGS: Lungs are clear to auscultation and percussion. Breath sounds decreased. HEART: Rate and Rhythm are regular. First and second heart sounds normal. No murmurs, rubs or gallops. ABDOMEN: Abdominal exam reveals normal bowel sounds. Non-tender and non- distended. No evidence of peritonitis. EXTREMITITES: No clubbing, cyanosis, or edema. Past Medical History Past Medical History: Diabetes Mellitus, Hyperlipidemia, Hypertension, Renal Disease Additional Past Medical History / Comment(s): retinopathy,neuropathy," ckd stage 4", "charcot foot" History of Any Multi-Drug Resistant Organisms: None Reported Past Surgical History: Cholecystectomy, Hysterectomy, Orthopedic Surgery, Tonsillectomy Additional Past Surgical History / Comment(s): cataract surgery-lens implants, partial hysterectomy, myomectomy, teddy foot sx bone removed and in the rt foot has plate/screws, ovaries bx-neg Past Anesthesia/Blood Transfusion Reactions: Postoperative Nausea & Vomiting ( PONV) Past Psychological History: Depression Smoking Status: Never smoker Past Alcohol Use History: None Reported Past Drug Use History: None Reported - Past Family History Father Additional Family Medical History / Comment(s): at age 45 from "coronary thrombus" Mother Family Medical History: COPD, Diabetes Mellitus Medications and Allergies Home Medications Medication Instructions Recorded Confirmed Type Aspirin EC [Ecotrin Low Dose] 81 mg PO DAILY 07/26/16 01/26/17 History Atorvastatin [Lipitor] 40 mg PO DAILY 07/26/16 01/26/17 History Ergocalciferol [Vitamin D2 50,000 unit PO Q14D 07/26/16 01/26/17 History (DRISDOL)] Insulin Aspart [NovoLOG] 18 unit SQ AC-TID 07/26/16 01/26/17 History Metoclopramide [Reglan] 5 mg PO TID 07/26/16 01/26/17 History amLODIPine [Norvasc] 10 mg PO DAILY 07/26/16 01/26/17 History Calcitriol 0.25 mcg PO Q7D 01/26/17 01/26/17 History Calcium Acetate [Phoslo] 667 mg PO DAILY 01/26/17 01/26/17 History Chlorthalidone [Hygroton] 25 mg PO DAILY 01/26/17 01/26/17 History Insulin Glargine,Hum.rec.anlog 50 unit SQ BID 01/26/17 01/26/17 History [Lantus Solostar] Spironolactone [Aldactone] 25 mg PO DAILY 01/26/17 01/26/17 History Torsemide [Demadex] 40 mg PO Q48H 01/26/17 01/26/17 History Allergies Allergy/AdvReac Type Severity Reaction Status Date / Time Latex, Natural Rubber Allergy Rash/Hives Verified 01/26/17 10:17 Penicillins Allergy Rash/Hives Verified 01/26/17 10:17 propoxyphene napsylate AdvReac Nausea & Verified 01/26/17 10:17 [From Mariah] Vomiting Physical Exam Vitals: Vital Signs Temp Pulse Pulse Resp BP BP Pulse Ox 01/27/17 07:00 98.3 F 94 16 140/69 97 01/27/17 00:00 100.2 F H 01/26/17 23:00 101.4 F H 103 H 16 153/82 96 01/26/17 16:56 98.0 F 110 H 16 174/84 97 01/26/17 15:33 99 F 108 H 21 170/77 95 01/26/17 14:23 105 H 191/83 01/26/17 14:03 94 179/70 01/26/17 13:55 189/86 01/26/17 13:41 110 H 16 204/92 99 01/26/17 11:07 107 H 20 185/83 98 Intake and Output 01/26/17 01/27/17 01/27/17 22:59 06:59 14:59 Other: Voiding Method Toilet # Voids 2 1 1 Results - Lab Results Most recent lab results Calcium 9.4 mg/dL (8.4-10.2) 01/26/17 10:05 01/26/17 10:05 01/26/17 10:05 Assessment and Plan Plan: Assessment: #1. Nonoliguric acute kidney injury mostly prerenal secondary to nausea and vomiting and further worsened with the use of diuretics. Creatinine was up to 3.7 as of yesterday. Labs from today are pending at this time. #2. Chronic kidney disease stage IV secondary to diabetic kidney disease with baseline creatinine in the range of 2.5-2.7. #3. Nausea and vomiting likely due to diabetic gastroparesis. #4. Urinary tract infection. Currently maintained on IV Rocephin. #5. Metabolic acidosis secondary to lactic acidosis as well as underlying chronic kidney disease. #6. Chronic kidney disease mineral bone disease. #7. Insulin-dependent diabetes mellitus. Plan: I will decrease rate of IV fluids to 75 mL an hour. Check urine culture. Continue to hold diuretics for now. Add oral sodium bicarbonate supplementation. Gastroenterology following. Hopefully her diet will be advanced today. Thank you for the consultation. I will continue to follow the patient with you during her hospital stay.
[2017-01-27] MEDS: COLLAGENASE 250 UNIT/GM OINTMENT 30 GM TUBE TOPICAL SCH (11:20)
[2017-01-27 11:57] LABS: Basophils % (A) 0 %; CH 27.8; CHCM 32.3; Eosinophils % (A) 0 %; HCT 31.8 % (34.0-46.0); HDW 3.11; HGB 10.3 gm/dL (11.4-16.0); Hypochromasia Slight; Luc # (Auto) 0.18; Luc % (Auto) 2; Lymphocytes # (A) 1.6 k/uL (1.0-4.8); Lymphocytes % (A) 15 %; MCH 27.9 pg (25.0-35.0); MCHC 32.4 g/dL (31.0-37.0); MCV 86.3 fL (80.0-100.0); Mean Platelet Volume 7.4; Monocytes # (A) 0.5 k/uL (0-1.0); Monocytes % (A) 5 %; Neutrophils # (A) 8.2 k/uL (1.3-7.7); Neutrophils % (A) 78 %; RBC 3.68 m/uL (3.80-5.40); RDW 15.9 % (11.5-15.5); WBC 10.5 k/uL (3.8-10.6); WBC (Perox) 10.33
[2017-01-27] MEDS: SODIUM BICARBONATE TAB 650 MG TAB PO SCH ×2 (11:57→20:47)
[2017-01-27 12:04] LABS: Glucose,Whole Blood 116 mg/dL (75-99)
[2017-01-27 12:15] LABS: Calcium 8.8 mg/dL (8.4-10.2); Potassium 3.4 mmol/L (3.5-5.1)
[2017-01-27] MEDS: METOCLOPRAMIDE 5 MG/ML 2 ML VIAL IVP PRN (13:57)
--- NOTE | 2017-01-27 13:59 | P.PN ---
Subjective Patient was admitted for sepsis secondary to urinary tract infection leading to elevated blood sugars severe nausea vomiting. Patient's hemoglobin did drop mostly secondary to hemodilution effect rather than upper GI bleed. Patient's creatinine did improve. REVIEW OF SYSTEMS: CARDIOVASCULAR: No chest pain, no orthopnea, no PND, no palpitations. PULMONARY: Denied any shortness of breath. No cough or hemoptysis. GASTROINTESTINAL: No diarrhea, nausea or vomiting. No abdominal pain. Normoactive bowel sounds. NEUROLOGIC: No headaches, no weakness, no numbness. Objective - Vital Signs Vital signs: Vital Signs Temp 98.3 F 01/27/17 07:00 Pulse 94 01/27/17 07:00 Resp 16 01/27/17 07:00 BP 140/69 01/27/17 07:00 Pulse Ox 97 01/27/17 07:00 Intake & Output 01/26/17 01/27/17 01/27/17 18:59 06:59 18:59 Intake Total 50 Balance 50 Weight 89.358 kg Intake: Intake, IV Titration 50 Amount cefTRIAXone 1,000 mg In 50 Sodium Chloride 0.9% 50 ml @ 100 mls/hr IVPB ONCE STA Rx#:[id number] Other: Voiding Method Toilet Toilet # Voids 1 1 - Exam PHYSICAL EXAMINATION: GENERAL: The patient is alert and oriented x3, not in any acute distress. Well developed, well nourished. HEENT: Pupils are round and equally reacting to light. EOMI. No scleral icterus. No conjunctival pallor. Normocephalic, atraumatic. No pharyngeal erythema. No thyromegaly. CARDIOVASCULAR: S1 and S2 present. No murmurs, rubs, or gallops. PULMONARY: Chest is clear to auscultation, no wheezing or crackles. ABDOMEN: Soft, nontender, nondistended, normoactive bowel sounds. No palpable organomegaly. MUSCULOSKELETAL: No joint swelling or deformity. EXTREMITIES: No cyanosis, clubbing, or pedal edema. NEUROLOGICAL: Gross neurological examination did not reveal any focal deficits. SKIN: No rashes. - Labs CBC & Chem 7: 01/27/17 11:17 01/27/17 11:17 Labs: Abnormal Lab Results - Last 24 Hours (Table) 01/26/17 01/26/17 01/26/17 Range/Units 10:05 15:08 15:30 RBC (3.80-5.40) m/uL Hgb (11.4-16.0) gm/dL Hct (34.0-46.0) % RDW (11.5-15.5) % Neutrophils # (1.3-7.7) k/uL Potassium (3.5-5.1) mmol/L Chloride (98-107) mmol/L Carbon Dioxide (22-30) mmol/L BUN (7-17) mg/dL Creatinine (0.52-1.04) mg/dL Glucose (74-99) mg/dL POC Glucose (mg/dL) 403 H (75-99) mg/dL Hemoglobin A1c 8.7 H (4.2-6.1) % Plasma Lactic Acid Carroll 2.2 H* (0.7-2.0) mmol/L 01/26/17 01/26/17 01/26/17 Range/Units 15:51 16:50 17:51 RBC (3.80-5.40) m/uL Hgb (11.4-16.0) gm/dL Hct (34.0-46.0) % RDW (11.5-15.5) % Neutrophils # (1.3-7.7) k/uL Potassium (3.5-5.1) mmol/L Chloride (98-107) mmol/L Carbon Dioxide (22-30) mmol/L BUN (7-17) mg/dL Creatinine (0.52-1.04) mg/dL Glucose (74-99) mg/dL POC Glucose (mg/dL) 439 H 431 H 365 H (75-99) mg/dL Hemoglobin A1c (4.2-6.1) % Plasma Lactic Acid Carroll (0.7-2.0) mmol/L 01/26/17 01/27/17 01/27/17 Range/Units 20:44 00:04 04:02 RBC (3.80-5.40) m/uL Hgb (11.4-16.0) gm/dL Hct (34.0-46.0) % RDW (11.5-15.5) % Neutrophils # (1.3-7.7) k/uL Potassium (3.5-5.1) mmol/L Chloride (98-107) mmol/L Carbon Dioxide (22-30) mmol/L BUN (7-17) mg/dL Creatinine (0.52-1.04) mg/dL Glucose (74-99) mg/dL POC Glucose (mg/dL) 307 H 211 H 163 H (75-99) mg/dL Hemoglobin A1c (4.2-6.1) % Plasma Lactic Acid Carroll (0.7-2.0) mmol/L 01/27/17 01/27/17 01/27/17 Range/Units 06:53 11:17 11:17 RBC 3.68 L (3.80-5.40) m/uL Hgb 10.3 L (11.4-16.0) gm/dL Hct 31.8 L (34.0-46.0) % RDW 15.9 H (11.5-15.5) % Neutrophils # 8.2 H (1.3-7.7) k/uL Potassium 3.4 L (3.5-5.1) mmol/L Chloride 111 H (98-107) mmol/L Carbon Dioxide 18 L (22-30) mmol/L BUN 49 H (7-17) mg/dL Creatinine 3.00 H (0.52-1.04) mg/dL Glucose 134 H (74-99) mg/dL POC Glucose (mg/dL) 201 H (75-99) mg/dL Hemoglobin A1c (4.2-6.1) % Plasma Lactic Acid Carroll (0.7-2.0) mmol/L 01/27/17 Range/Units 11:57 RBC (3.80-5.40) m/uL Hgb (11.4-16.0) gm/dL Hct (34.0-46.0) % RDW (11.5-15.5) % Neutrophils # (1.3-7.7) k/uL Potassium (3.5-5.1) mmol/L Chloride (98-107) mmol/L Carbon Dioxide (22-30) mmol/L BUN (7-17) mg/dL Creatinine (0.52-1.04) mg/dL Glucose (74-99) mg/dL POC Glucose (mg/dL) 116 H (75-99) mg/dL Hemoglobin A1c (4.2-6.1) % Plasma Lactic Acid Carroll (0.7-2.0) mmol/L Assessment and Plan Plan: #1 possible sepsis secondary to urinary tract infection continue with Rocephin. Awaiting urine cultures since 2 days. Blood cultures so far negative. 2 intractable nausea and vomiting probably due to gastroparesis gastritis and peptic ulcer disease need to be considered. patient was started on IV Protonix. Patient recently underwent upper GI endoscopy patient does have hiatal hernia and patient will also be started on Reglan. Patient was started on IV fluids. Holding off diuretic therapy. #3 acute renal failure secondary to proliferative ischemia from nausea vomiting and also polyuria from hyperglycemia. Patient was started on IV fluids hold holding off on diuretic therapy. #4 diabetic nephropathy leading to stage IV chronic kidney disease. #5 diabetic neuropathy. With diabetic foot ulcers for which patient will need local wound care. #6 leukocytosis reactive in nature. #7 tachycardia secondary to intravascular volume depletion which proved. #8 lactic acidosis due to severe intravascular volume depletion along with possible urinary tract infection.
[2017-01-27] MEDS: SODIUM CHLORIDE 0.9% 1,000 ML IV SCH (15:52)
[2017-01-27 17:41] LABS: Glucose,Whole Blood 161 mg/dL (75-99)
[2017-01-27 20:35] LABS: Glucose,Whole Blood 166 mg/dL (75-99)
[2017-01-27] MEDS: HYDROcodone/APAP 7.5-325MG 1 EACH TAB PO PRN (20:46)
[2017-01-27] MEDS ORDERED: INSULIN LISPRO (humaLOG) 300 UNIT/3 ML VIAL SQ SCH (21:06)
[2017-01-28] MEDS: SODIUM CHLORIDE 0.9% 1,000 ML IV SCH ×2 (04:20→14:04)
[2017-01-28 07:18] LABS: Glucose,Whole Blood 75 mg/dL (75-99)
[2017-01-28 07:27] VITALS: RESP 16
[2017-01-28] MEDS: INSULIN LISPRO (humaLOG) 300 UNIT/3 ML VIAL SQ SCH ×4 (07:35→12:42)
[2017-01-28] MEDS: METOCLOPRAMIDE 5 MG/ML 2 ML VIAL IVP PRN (07:54)
[2017-01-28] MEDS: ATORVASTATIN 40 MG TAB PO SCH (07:55)
[2017-01-28] MEDS: amLODIPine 10 MG TAB PO SCH (07:55)
[2017-01-28] MEDS: PANTOPRAZOLE 40 MG/10 ML VIAL IV SCH (07:56)
--- NOTE | 2017-01-28 09:28 | P.PN ---
Subjective Patient is seen in follow-up for acute kidney injury on chronic kidney disease. Patient has chronic kidney disease stage IV secondary to diabetic kidney disease. She has a maturing left upper extremity AV fistula. Patient presented to the hospital with nausea and vomiting. This is mostly resolved. She is tolerating oral intake. She did feel a little nauseous this morning. Admits to good urine output. Denies chest pain or shortness of breath. Creatinine was up to 3.7 this admission and was down to 3.0 yesterday. Vital signs are stable. General: The patient appeared well nourished and normally developed. HEENT: Head exam is unremarkable. Neck is without jugular venous distension. LUNGS: Lungs are clear to auscultation and percussion. Breath sounds decreased. HEART: Rate and Rhythm are regular. First and second heart sounds normal. No murmurs, rubs or gallops. ABDOMEN: Abdominal exam reveals normal bowel sounds. Non-tender and non- distended. No evidence of peritonitis. EXTREMITITES: No clubbing, cyanosis, or edema. Objective - Vital Signs Vital signs: Vital Signs Temp 96.7 F L 01/28/17 07:00 Pulse 84 01/28/17 07:00 Resp 16 01/28/17 07:00 BP 162/77 01/28/17 07:00 Pulse Ox 97 01/28/17 07:00 Intake & Output 01/27/17 01/28/17 01/28/17 18:59 06:59 18:59 Intake Total 50 950 Balance 50 950 Weight 89.358 kg Intake: Intake, IV Titration 50 Amount cefTRIAXone 1,000 mg In 50 Sodium Chloride 0.9% 50 ml @ 100 mls/hr IVPB ONCE STA Rx#:[id number] Oral 950 Other: Voiding Method Toilet Toilet # Voids 2 1 # Bowel Movements 1 - Labs CBC & Chem 7: 01/27/17 11:17 01/27/17 11:17 Labs: Abnormal Lab Results - Last 24 Hours (Table) 01/27/17 01/27/17 01/27/17 Range/Units 11:17 11:17 11:57 RBC 3.68 L (3.80-5.40) m/uL Hgb 10.3 L (11.4-16.0) gm/dL Hct 31.8 L (34.0-46.0) % RDW 15.9 H (11.5-15.5) % Neutrophils # 8.2 H (1.3-7.7) k/uL Potassium 3.4 L (3.5-5.1) mmol/L Chloride 111 H (98-107) mmol/L Carbon Dioxide 18 L (22-30) mmol/L BUN 49 H (7-17) mg/dL Creatinine 3.00 H (0.52-1.04) mg/dL Glucose 134 H (74-99) mg/dL POC Glucose (mg/dL) 116 H (75-99) mg/dL 01/27/17 01/27/17 Range/Units 17:00 20:28 RBC (3.80-5.40) m/uL Hgb (11.4-16.0) gm/dL Hct (34.0-46.0) % RDW (11.5-15.5) % Neutrophils # (1.3-7.7) k/uL Potassium (3.5-5.1) mmol/L Chloride (98-107) mmol/L Carbon Dioxide (22-30) mmol/L BUN (7-17) mg/dL Creatinine (0.52-1.04) mg/dL Glucose (74-99) mg/dL POC Glucose (mg/dL) 161 H 166 H (75-99) mg/dL Assessment and Plan Plan: Assessment: #1. Nonoliguric acute kidney injury mostly prerenal secondary to nausea and vomiting and further worsened with the use of diuretics. Creatinine was up to 3.7 this admission and was down to 3.0 yesterday. #2. Chronic kidney disease stage IV secondary to diabetic kidney disease with baseline creatinine in the range of 2.5-2.7. #3. Nausea and vomiting likely due to diabetic gastroparesis. #4. Urinary tract infection. Currently maintained on IV Rocephin. #5. Metabolic acidosis secondary to lactic acidosis as well as underlying chronic kidney disease. #6. Chronic kidney disease mineral bone disease. #7. Insulin-dependent diabetes mellitus. Plan: I will decrease rate of IV fluids to 60 mL an hour. Check urine culture. Continue to hold diuretics for now. Maintain oral sodium bicarbonate supplementation. Gastroenterology following. No urgent need for renal replacement therapy at this time.
[2017-01-28] MEDS: INSULIN GLARGINE 100 UNIT/ML 10 ML VIAL SQ SCH (09:38)
[2017-01-28] MEDS: ASPIRIN 81 MG CHEW PO SCH (09:39)
[2017-01-28] MEDS: COLLAGENASE 250 UNIT/GM OINTMENT 30 GM TUBE TOPICAL SCH (09:39)
[2017-01-28] MEDS: SODIUM BICARBONATE TAB 650 MG TAB PO SCH (09:40)
[2017-01-28] MEDS: CALCIUM ACETATE 667 MG CAP PO SCH (09:40)
[2017-01-28 11:51] LABS: Calcium 8.5 mg/dL (8.4-10.2); Potassium 3.6 mmol/L (3.5-5.1)
[2017-01-28 12:29] LABS: Glucose,Whole Blood 114 mg/dL (75-99)
[2017-01-28 14:12] VITALS: BP 151/75; PULSE 86; TEMP 97.5
--- NOTE | 2017-01-28 15:42 | P.DS ---
Providers Date of admission: 01/26/17 14:54 Attending physician: Anai Rebolledo Consults: 01/26/17 19:35 Consult Physician Routine Consulting Provider: Ama Pham Consult Reason/Comments: known pt Do you want consulting provider notified?: Yes Primary care physician: Pawan Villasenor Hospital Course: Patient was admitted for sepsis secondary to urinary tract infection leading to elevated blood sugars severe nausea vomiting. Patient had acute renal dysfunction secondary to prerenal renal failure from excessive diuretic therapy which is being discontinued. Unfortunately urine cultures are not [place] in ER because of which not expecting urine cultures to be positive. Patient [place] early discharge on Ceftin 10 as patient improved on Rocephin. Patient is afebrile #1 possible sepsis secondary to urinary tract infection continue with Rocephin. . Blood cultures so far negative. 2 intractable nausea and vomiting probably due to gastroparesis gastritis and peptic ulcer disease need to be considered. #3 acute renal failure secondary to from nausea vomiting and also polyuria from hyperglycemia. #4 diabetic nephropathy leading to stage IV chronic kidney disease. #5 diabetic neuropathy. With diabetic foot ulcers for which patient will need local wound care. #6 leukocytosis secondary to urinary tract infection Improved #7 tachycardia secondary to intravascular volume depletion which proved. #8 lactic acidosis due to severe intravascular volume depletion along with possible urinary tract infection. Which resolved at this point of time. PHYSICAL EXAMINATION: GENERAL: The patient is alert and oriented x3, not in any acute distress. Well developed, well nourished. HEENT: Pupils are round and equally reacting to light. EOMI. No scleral icterus. No conjunctival pallor. Normocephalic, atraumatic. No pharyngeal erythema. No thyromegaly. CARDIOVASCULAR: S1 and S2 present. No murmurs, rubs, or gallops. PULMONARY: Chest is clear to auscultation, no wheezing or crackles. ABDOMEN: Soft, nontender, nondistended, normoactive bowel sounds. No palpable organomegaly. MUSCULOSKELETAL: No joint swelling or deformity. EXTREMITIES: No cyanosis, clubbing, or pedal edema. NEUROLOGICAL: Gross neurological examination did not reveal any focal deficits. SKIN: No rashes. Plan - Discharge Summary New Discharge Prescriptions: New Cefuroxime Axetil [Ceftin] 500 mg PO BID #14 tab Discontinued Torsemide [Demadex] 40 mg PO Q48H Spironolactone [Aldactone] 25 mg PO DAILY Chlorthalidone [Hygroton] 25 mg PO DAILY No Action Insulin Aspart [NovoLOG] 18 unit SQ AC-TID Aspirin EC [Ecotrin Low Dose] 81 mg PO DAILY amLODIPine [Norvasc] 10 mg PO DAILY Atorvastatin [Lipitor] 40 mg PO DAILY Ergocalciferol [Vitamin D2 (DRISDOL)] 50,000 unit PO Q14D Metoclopramide [Reglan] 5 mg PO TID Insulin Glargine,Hum.rec.anlog [Lantus Solostar] 50 unit SQ BID Calcitriol 0.25 mcg PO Q7D Calcium Acetate [Phoslo] 667 mg PO DAILY Discharge Medication List Aspirin EC [Ecotrin Low Dose] 81 mg PO DAILY 07/26/16 [History] Atorvastatin [Lipitor] 40 mg PO DAILY 07/26/16 [History] Ergocalciferol [Vitamin D2 (DRISDOL)] 50,000 unit PO Q14D 07/26/16 [History] Insulin Aspart [NovoLOG] 18 unit SQ AC-TID 07/26/16 [History] Metoclopramide [Reglan] 5 mg PO TID 07/26/16 [History] amLODIPine [Norvasc] 10 mg PO DAILY 07/26/16 [History] Calcitriol 0.25 mcg PO Q7D 01/26/17 [History] Calcium Acetate [Phoslo] 667 mg PO DAILY 01/26/17 [History] Insulin Glargine,Hum.rec.anlog [Lantus Solostar] 50 unit SQ BID 01/26/17 [ History] Cefuroxime Axetil [Ceftin] 500 mg PO BID #14 tab 01/28/17 [Rx] Follow up Appointment(s)/Referral(s): Pawan Villasenor MD [Primary Care Provider] - 3 Days (call tomorrow for appointment, office closed) Hugh Ochoa DO [STAFF PHYSICIAN] - 1 Week (call tomorrow for appt., office closed) Patient Instructions/Handouts: Dehydration (DC), Acute Kidney Injury (DC), Urinary Tract Infection in Women (DC), Diabetic Hyperglycemia (DC) Discharge Disposition: HOME SELF-CARE
== END 2017-01-28 15:07 | disposition home or self-care (01) | DRG 872 ==
LOC: EC 10:01 → 4MS4W 14:54
PROVIDERS: ADMIT Internal Medicine; ATTEND Internal Medicine
DX: A41.9 Sepsis, unspecified organism (principal); E87.2 Acidosis; E11.21 Type 2 diabetes mellitus with diabetic nephropathy; N17.9 Acute kidney failure, unspecified; K31.84 Gastroparesis; N18.4 Chronic kidney disease, stage 4 (severe); E11.43 Type 2 diabetes mellitus with diabetic autonomic (poly)neuropathy; E11.621 Type 2 diabetes mellitus with foot ulcer; N39.0 Urinary tract infection, site not specified; E11.22 Type 2 diabetes mellitus with diabetic chronic kidney disease; E11.610 Type 2 diabetes mellitus with diabetic neuropathic arthropathy; E11.65 Type 2 diabetes mellitus with hyperglycemia; E11.319 Type 2 diabetes mellitus with unspecified diabetic retinopathy without macular edema; L97.521 Non-pressure chronic ulcer of other part of left foot limited to breakdown of skin; I12.9 Hypertensive chronic kidney disease with stage 1 through stage 4 chronic kidney disease, or unspecified chronic kidney disease; E86.0 Dehydration; E78.5 Hyperlipidemia, unspecified; K44.9 Diaphragmatic hernia without obstruction or gangrene; Z90.49 Acquired absence of other specified parts of digestive tract; Z90.710 Acquired absence of both cervix and uterus; Z98.49 Cataract extraction status, unspecified eye; Z96.1 Presence of intraocular lens; F32.9 Major depressive disorder, single episode, unspecified; Z79.82 Long term (current) use of aspirin; Z79.4 Long term (current) use of insulin; Z79.899 Other long term (current) drug therapy; Z88.5 Allergy status to narcotic agent; Z88.0 Allergy status to penicillin; Z88.8 Allergy status to other drugs, medicaments and biological substances; Z91.040 Latex allergy status
CPT/HCPCS: 36415; 74022; 80048; 80053; 81001; 82009; 82803; 83036; 83605; 83690; 85025; 87086

== ENCOUNTER → 2017-02-02 | Outpatient (CLI) | payer MEDICARE ==
[2017-02-02 13:54] LABS: CH 28.3; CHCM 31.6; HCT 32.4 % (34.0-46.0); HDW 3.19; HGB 10.4 gm/dL (11.4-16.0); Hypochromasia Slight; MCH 28.8 pg (25.0-35.0); Mean Platelet Volume 7.9; RDW 15.9 % (11.5-15.5); WBC 6.7 k/uL (3.8-10.6)
[2017-02-02 13:56] LABS: Calcium 8.2 mg/dL (8.4-10.2); Potassium 4.9 mmol/L (3.5-5.1)
== END | disposition home or self-care (01) ==
LOC: LABWHC1 13:22
PROVIDERS: ATTEND Nurse Practitioner Family
DX: N18.4 Chronic kidney disease, stage 4 (severe) (principal); D63.1 Anemia in chronic kidney disease
CPT/HCPCS: 36415; 80048; 85027

== ENCOUNTER → 2017-07-19 | Outpatient (CLI) | payer MEDICARE ==
[2017-07-19 15:24] LABS: HCT 35.2 % (34.0-46.0); HGB 10.9 gm/dL (11.4-16.0); RBC 3.84 m/uL (3.80-5.40); WBC 6.1 k/uL (3.8-10.6)
[2017-07-19 15:25] LABS: Anisocytosis Slight; Hypochromasia Slight; MCH 28.5 pg (25.0-35.0); MCV 91.7 fL (80.0-100.0); Mean Platelet Volume 7.6; Platelet Count 159 k/uL (150-450); RDW 16.8 % (11.5-15.5)
[2017-07-19 15:36] LABS: Albumin 3.1 g/dL (3.5-5.0); Calcium 8.7 mg/dL (8.4-10.2); Magnesium 1.8 mg/dL (1.6-2.3); Phosphorus 4.7 mg/dL (2.5-4.5); Potassium 5.3 mmol/L (3.5-5.1); Total Bilirubin 0.2 mg/dL (0.2-1.3); Total Protein 6.2 g/dL (6.3-8.2)
[2017-07-19 19:02] LABS: Vitamin D 25 Hydroxy 9.6 ng/mL (30.0-100.0)
[2017-07-19 21:42] LABS: Parathyroid Hormone Intact 408.3 pg/mL (14.0-72.0)
== END | disposition home or self-care (01) ==
LOC: LABWHC1 14:51
PROVIDERS: ATTEND Nurse Practitioner Family
DX: N18.4 Chronic kidney disease, stage 4 (severe) (principal); E83.39 Other disorders of phosphorus metabolism; E55.9 Vitamin D deficiency, unspecified; M10.9 Gout, unspecified
CPT/HCPCS: 36415; 80053; 82306; 83735; 83970; 84100; 84550; 85027

== ENCOUNTER → 2017-08-13 | Outpatient (CLI) | payer MEDICARE ==
[2017-08-13 11:35] LABS: HCT 35.4 % (34.0-46.0); HGB 11.4 gm/dL (11.4-16.0); MCH 27.5 pg (25.0-35.0); MCHC 32.1 g/dL (31.0-37.0); Platelet Count 185 k/uL (150-450); RBC 4.13 m/uL (3.80-5.40); RDW 14.7 % (11.5-15.5); WBC 5.5 k/uL (3.8-10.6)
[2017-08-13 11:38] LABS: MCV 85.7 fL (80.0-100.0)
[2017-08-13 11:58] LABS: Albumin 3.4 g/dL (3.5-5.0); Magnesium 1.9 mg/dL (1.6-2.3); Phosphorus 6.6 mg/dL (2.5-4.5); Potassium 4.6 mmol/L (3.5-5.1); Uric Acid 5.3 mg/dL (3.7-7.4)
[2017-08-13 12:08] LABS: Amorphous Sediment,Urine Rare /hpf; Appearance,Urine Clear (Clear); Bacteria,Urine Rare /hpf; Bilirubin,Urine Negative (Negative); Blood,Urine Trace (Negative); Color,Urine Light Yellow; Glucose,Urine (UA) 1+ (Negative); Hyaline Casts,Urine 4 /lpf (0-2); Ketones,Urine Negative (Negative); Leukocyte Esterase,Urine Negative (Negative); Mucus,Urine Rare /hpf; Nitrite,Urine Negative (Negative); Protein,Urine 3+ (Negative); RBC,Urine 1 /hpf (0-5); Specific Gravity,Urine 1.009 (1.001-1.035); Squamous Epithelial Cell,Urine 1 /hpf (0-4); Urobilinogen,Urine <2.0 mg/dL (<2.0); WBC,Urine 2 /hpf (0-5)
[2017-08-13 15:29] LABS: Iron Saturation 16.78 (12.00-45.00)
[2017-08-13 15:38] LABS: Vitamin D 25 Hydroxy 15.8 ng/mL (30.0-100.0)
[2017-08-13 16:57] LABS: Hemoglobin A1C 7.3 % (4.0-6.0)
[2017-08-13 17:04] LABS: Parathyroid Hormone Intact 311.9 pg/mL (14.0-72.0)
== END | disposition home or self-care (01) ==
LOC: LABWHC1 10:50
PROVIDERS: ATTEND Nurse Practitioner Family
DX: D64.9 Anemia, unspecified (principal); E21.3 Hyperparathyroidism, unspecified; N39.0 Urinary tract infection, site not specified; E55.9 Vitamin D deficiency, unspecified; E79.0 Hyperuricemia without signs of inflammatory arthritis and tophaceous disease; E10.65 Type 1 diabetes mellitus with hyperglycemia; E10.22 Type 1 diabetes mellitus with diabetic chronic kidney disease; N18.4 Chronic kidney disease, stage 4 (severe)
CPT/HCPCS: 36415; 80048; 81001; 82040; 82306; 82728; 83036; 83540; 83550; 83735; 83970; 84100; 84550; 85027

== ENCOUNTER → 2017-09-01 | Outpatient (CLI) | payer MEDICARE ==
[2017-09-02 00:20] LABS: Hepatitis A Antibody IgM Non-Reactive (Non-Reactive); Hepatitis B Core IgM Non-Reactive (Non-Reactive)
== END | disposition home or self-care (01) ==
LOC: LABWHC1 11:15
PROVIDERS: ATTEND Nurse Practitioner Family
DX: N18.6 End stage renal disease (principal); R53.83 Other fatigue
CPT/HCPCS: 36415; 80074

== ENCOUNTER 2020-06-01 06:30 | Day surgery (SDC) | payer MEDICARE ==
[2020-05-31 08:36] VITALS: BMI 23.3
[~2020-06-01 06:30] MED LIST: ALPRAZolam 0.25 MG TAB PO PRN; ALPRAZolam 0.5 MG TAB PO PRN; ASPIRIN 325 MG TAB PO STA; ATORVASTATIN 80 MG TAB PO STA; NITROGLYCERIN SL TABS 0.4 MG TAB SUBLINGUAL PRN; SODIUM CHLORIDE 0.9% 1,000 ML in EMPTY BAG 1 BAG IV ONE
[2020-06-01 07:01] LABS: Glucose,Whole Blood 118 mg/dL (75-99)
[2020-06-01 07:08] LABS: Basophils # (A) 0.1 k/uL (0-0.2); Basophils % (A) 1 %; Eosinophils # (A) 0.2 k/uL (0-0.7); Eosinophils % (A) 3 %; HCT 33.4 % (34.0-46.0); HGB 10.9 gm/dL (11.4-16.0); Lymphocytes # (A) 0.9 k/uL (1.0-4.8); Lymphocytes % (A) 10 %; MCH 31.9 pg (25.0-35.0); MCHC 32.4 g/dL (31.0-37.0); MCV 98.4 fL (80.0-100.0); Monocytes # (A) 0.3 k/uL (0-1.0); Monocytes % (A) 4 %; Neutrophils # (A) 7.2 k/uL (1.3-7.7); Neutrophils % (A) 82 %; Platelet Count 164 k/uL (150-450); RDW 14.7 % (11.5-15.5); WBC 8.8 k/uL (3.8-10.6)
[2020-06-01 07:12] VITALS: RESP 18; TEMP 98.1
[2020-06-01] MEDS ORDERED: LIDOCAINE 1% INJ 10MG/ML (20 ML MDV) ONE (07:28)
[2020-06-01 07:32] LABS: Calcium 9.4 mg/dL (8.4-10.2); Potassium 4.2 mmol/L (3.5-5.1)
[2020-06-01] MEDS ORDERED: fentaNYL (PF) 50 MCG/ML 2 ML AMP ONE (07:37)
[2020-06-01] MEDS ORDERED: fentaNYL (PF) 50 MCG/ML 2 ML AMP IVP ONE (07:41)
[2020-06-01] MEDS ORDERED: MIDAZOLAM 2 MG/2 ML VIAL IVP ONE (07:41)
[2020-06-01] MEDS ORDERED: LIDOCAINE 1% INJ 10MG/ML (20 ML MDV) SQ ONE (07:44)
[2020-06-01] MEDS ORDERED: IOPAMIDOL-370 125ML BTL INJ ONE (07:55)
[2020-06-01] MEDS ORDERED: RX INFO: IV CONTRAST WAS GIVEN 1 EACH MISC MISCELLANE PRN (10:03)
--- NOTE | 2020-06-01 10:22 | CC ---
CARDIAC CATHETERIZATION REPORT INDICATION: Abnormal stress test in a patient who is being evaluated for renal transplant. PROCEDURE NOTE: After obtaining informed consent, left heart catheterization and coronary angiogram were performed via the right femoral artery using standard Sussy catheters. Patient tolerated the procedure well without any immediate complication. A femoral angiogram was performed and Angio-Seal was deployed for hemostasis. Patient received moderate conscious sedation. Total sedation time was 15 minutes. FINDINGS: HEMODYNAMICS: Left ventricular end-diastolic pressure is 20 mm. There is no significant gradient across the aortic valve. LEFT VENTRICULOGRAM: Left ventriculogram is not performed. ANGIOGRAPHIC DATA: LEFT MAIN CORONARY ARTERY: Left main coronary artery is a normal-sized vessel and is free of stenosis. Divides into left anterior descending coronary artery, ramus intermedius and circumflex coronary artery. LAD and its branches circumflex coronary artery and its branches are free of significant stenosis. Right coronary artery is a large dominant vessel and is free of significant disease. CONCLUSION: No significant obstructive CAD. PLAN: I reviewed angiographic data with the patient and told her that her cardiomyopathy is nonischemic in etiology and she is an acceptable risk candidate for renal transplant whenever it needs be done. MMODL / IJN: [id number] /
--- NOTE | 2020-06-01 10:25 | LTR ---
DATE OF SERVICE: 06/01/2020 RE: Nury Philip Dear Dr. Hinojosa; I performed cardiac catheterization on Nury Sheets. A detailed catheterization note is enclosed for your records. In brief, cardiac catheterization did not reveal significant obstructive CAD. Her management is going to be with medical therapy and she is stable for kidney transplant. Sincerely, MD JAE Palomo / MARK: [id number] /
[2020-06-01 12:26] VITALS: PULSE 80
[2020-06-01 12:28] VITALS: BP 155/74
== END 2020-06-01 13:05 | disposition home or self-care (01) ==
LOC: CATHCVL 06:30
PROVIDERS: ATTEND Internal Medicine Cardiovascular Disease
DX: I42.8 Other cardiomyopathies (principal); R94.39 Abnormal result of other cardiovascular function study; I12.0 Hypertensive chronic kidney disease with stage 5 chronic kidney disease or end stage renal disease; E11.22 Type 2 diabetes mellitus with diabetic chronic kidney disease; N18.6 End stage renal disease; E78.2 Mixed hyperlipidemia; Z99.2 Dependence on renal dialysis; Z82.49 Family history of ischemic heart disease and other diseases of the circulatory system; Z79.4 Long term (current) use of insulin; Z88.0 Allergy status to penicillin; Z79.899 Other long term (current) drug therapy
CPT/HCPCS: 93458; 80048; 85025; C1769 ×2; C1760; C1894; J2250; J2001; J3010; Q9967

== ENCOUNTER 2022-07-23 16:43 | Emergency (ER) | payer MEDICARE ==
[2022-07-23 17:01] VITALS: TEMP 97.2
[2022-07-23 18:00] LABS: Anisocytosis Slight; Basophils # (A) 0.1 k/uL (0-0.2); Basophils % (A) 1 %; Eosinophils # (A) 0.2 k/uL (0-0.7); Eosinophils % (A) 3 %; HCT 32.5 % (34.0-46.0); HGB 9.8 gm/dL (11.4-16.0); Hypochromasia Marked; Lymphocytes # (A) 1.1 k/uL (1.0-4.8); Lymphocytes % (A) 13 %; MCHC 30.3 g/dL (31.0-37.0); MCV 92.4 fL (80.0-100.0); Mean Platelet Volume 8.5; Monocytes # (A) 0.5 k/uL (0-1.0); Monocytes % (A) 6 %; Neutrophils # (A) 6.6 k/uL (1.3-7.7); Neutrophils % (A) 76 %; Platelet Count 187 k/uL (150-450); RBC 3.52 m/uL (3.80-5.40); RDW 17.3 % (11.5-15.5); WBC 8.6 k/uL (3.8-10.6)
--- NOTE | 2022-07-23 19:04 | ED ---
General Adult HPI - General Chief complaint: Wound/Laceration Stated complaint: lt arm bleed Time Seen by Provider: 07/23/22 16:43 Source: EMS Mode of arrival: EMS Limitations: no limitations - History of Present Illness Initial comments: 61-year-old female with past history of end-stage renal disease on hemodialysis on Sunday, Sunday and Sunday who presents to the emergency room with arterial bleeding. Reports that she had her treatment on Sunday. Today she attempted to take off the bandage from her left upper arm graft. She subsequently began bleeding. EMS was called and stated that patient had pulsatile bleeding. He attempted to control with direct pressure however was unsuccessful. Tourniquet was then applied to the patient's arm at 1630. Bleeding appeared to be controlled after this. She is not on any blood thinners. States that she has not missed any treatments for her dialysis. No trauma to the area. No alleviating, precipitating or modifying factors - Related Data Home Medications Medication Instructions Recorded Confirmed Atorvastatin [Lipitor] 40 mg PO DAILY 07/26/16 06/01/20 Metoclopramide [Reglan] 10 mg PO TID 07/26/16 06/01/20 Calcium Acetate [Phoslo] 667 mg PO TID-W/MEALS 01/26/17 06/01/20 Furosemide [Lasix] 80 mg PO DAILY 05/31/20 06/01/20 INSULIN LISPRO (humaLOG) [humaLOG] 7 units SQ TID 05/31/20 06/01/20 Insulin Glargine,Hum.rec.anlog 25 units SQ BID 05/31/20 06/01/20 [[place]aley Solostar] Sertraline [Zoloft] 50 mg PO DAILY 05/31/20 06/01/20 Vit C/E/Zn/Coppr/Lutein/Zeaxan 1 each PO DAILY 05/31/20 06/01/20 [Preservision Areds 2 Softgel] allopurinoL [Zyloprim] 100 mg PO DAILY 05/31/20 06/01/20 Allergies Allergy/AdvReac Type Severity Reaction Status Date / Time Latex, Natural Rubber Allergy Rash/Hives Verified 06/02/21 11:44 Penicillins Allergy Rash/Hives Verified 06/02/21 11:44 propoxyphene napsylate AdvReac Nausea & Verified 06/02/21 11:44 [From Darvocet-N] Vomiting Review of Systems ROS Statement: Those systems with pertinent positive or pertinent negative responses have been documented in the HPI. ROS Other: All systems not noted in ROS Statement are negative. Past Medical History Past Medical History: Diabetes Mellitus, Eye Disorder, Hyperlipidemia, Hypertension, Neurologic Disorder, Renal Disease Additional Past Medical History / Comment(s): "Legally Blind", Retinopathy, Neuropathy, "Charcot Foot, wears braces", Parkinson's, Stage 5 Chronic Kidney Disease, Dialysis Mon, Sun & Fri. History of Any Multi-Drug Resistant Organisms: None Reported Past Surgical History: Cholecystectomy, Hysterectomy, Orthopedic Surgery, Tonsillectomy Additional Past Surgical History / Comment(s): Cataract surgery-lens implants, partial hysterectomy, myomectomy, bilateral foot surgery, right foot bone removed and replaced with plate/screws, ovarian biopsy -negative. left foot amputation Past Anesthesia/Blood Transfusion Reactions: Postoperative Nausea & Vomiting (PONV) Past Psychological History: Anxiety, Depression Smoking Status: Never smoker Past Alcohol Use History: None Reported Past Drug Use History: None Reported - Past Family History Father Additional Family Medical History / Comment(s): at age 45 from "coronary thrombus". Mother Family Medical History: Cancer, COPD, Diabetes Mellitus General Exam Limitations: no limitations General appearance: alert, in no apparent distress Head exam: Present: atraumatic, normocephalic, normal inspection Eye exam: Present: normal appearance, PERRL, EOMI. Absent: scleral icterus, conjunctival injection, periorbital swelling Respiratory exam: Present: normal lung sounds bilaterally. Absent: respiratory distress, wheezes, rales, rhonchi, stridor Cardiovascular Exam: Present: regular rate, normal rhythm, normal heart sounds. Absent: systolic murmur, diastolic murmur, rubs, gallop, clicks GI/Abdominal exam: Present: soft, normal bowel sounds. Absent: distended, tenderness, guarding, rebound, rigid Extremities exam: Present: other (tourniquet on the lue. av graft has a 1.0 x 1.0 cm area of open ulceration on the skin surface. no active bleeding upon my evaluation) Course Vital Signs 07/23/22 07/23/22 07/23/22 16:43 17:12 20:44 Temperature 97.2 F L Pulse Rate 84 86 78 Respiratory 16 15 Rate Blood Pressure 96/61 116/68 111/85 O2 Sat by Pulse 93 L 100 Oximetry Medical Decision Making - Medical Decision Making Was pt. sent in by a medical professional or institution? no Did you speak to anyone other than the patient for history? EMS Did you review nursing and triage notes? yes and I agree Were old charts reviewed? no Differential Diagnosis? laceration, abrasion, malfunctioning graft, bleeding disorder EKG interpreted by me (3pts min.)? no X-rays interpreted by me (1pt min.)? no CT interpreted by me (1pt min.)? no U/S interpreted by me (1pt. min.)? no What testing was considered but not performed? (CT, X-rays, U/S, labs)? Why? none What meds were considered but not given? Why? blood products however not needed with current labs Did you discuss the management of the patient with other professionals? no Did you reconcile home meds? no Was smoking cessation discussed for >3mins.? no Was critical care preformed (if so, how long)? no Were there social determinants of health that impacted care today? How? (Homelessness, low income, unemployed, alcoholism, drug addiction, transportation, low edu. Level, literacy, decrease access to med. care, detention, rehab)? none Was there de-escalation of care discussed even if they declined? (Discuss DNR or withdrawal of care, Hospice)? no What co-morbidities impacted this encounter? (DM, HTN, Smoking, COPD, CAD, Cancer, CVA, Hep., AIDS, mental health diagnosis, sleep apnea, morbid obesity)? ESRD, DM, htn Was patient admitted / discharged? @Upon arrival patient was placed into trauma 2. A thorough history and physical exam was performed. Patient does have tourniquet in place which has been ap plied for approximately 10 minutes before hospital arrival. I did obtain gauze, ABD pads, Dermabond. Pressure dressings are removed. There is an area of ulceration over the patients fistula. There is no active bleeding noted at this time. I did place a layer of Dermabond over the area of ulceration. The tourniquet is then slowly removed at 1845. I am able to palpate a thrill in the patient's fistula. She does have return of coloration to her distal hand. Paresthesias resolved. Patient is observed in the emergency department for 2 hours. Laboratory studies obtained. Hemoglobin noted to be 9.8. Patient does remain hemodynamically stable at this time. Patient will be discharged home with a prescription to have her hemoglobin redrawn tomorrow at dialysis to ensure that her hemoglobin has stabilized. Patient does have Adaptic, ABD pads and Coban wraps to the left upper extremity. Patient should have this removed by dialysis tomorrow. Follow up with her vascular. Return for any new or worsening symptoms. Patient discharged home in stable condition Undiagnosed new problem with uncertain prognosis? yes Drug Therapy requiring intensive monitoring for toxicity (Heparin, Nitro, Insulin, Cardizem)? no Were any procedures done? dermabond repair over left av graft Diagnosis/symptom? acute arterial bleed Acute, or Chronic, or Acute on Chronic? acute Uncomplicated (without systemic symptoms) or Complicated (systemic symptoms)? complicated Side effects of treatment? none Exacerbation, Progression, or Severe Exacerbation] no Poses a threat to life or bodily function? yes - Lab Data Result diagrams: 07/23/22 17:05 Lab Results 07/23/22 07/23/22 Range/Units 17:05 17:59 WBC 8.6 (3.8-10.6) k/uL RBC 3.52 L (3.80-5.40) m/uL Hgb 9.8 L (11.4-16.0) gm/dL Hct 32.5 L (34.0-46.0) % MCV 92.4 (80.0-100.0) fL MCH 28.0 (25.0-35.0) pg MCHC 30.3 L (31.0-37.0) g/dL RDW 17.3 H (11.5-15.5) % Plt Count 187 (150-450) k/uL MPV 8.5 Neutrophils % 76 % Lymphocytes % 13 % Monocytes % 6 % Eosinophils % 3 % Basophils % 1 % Neutrophils # 6.6 (1.3-7.7) k/uL Lymphocytes # 1.1 (1.0-4.8) k/uL Monocytes # 0.5 (0-1.0) k/uL Eosinophils # 0.2 (0-0.7) k/uL Basophils # 0.1 (0-0.2) k/uL Hypochromasia Marked Anisocytosis Slight Blood Type A Negative Blood Type Recheck A Neg Bld Type Recheck Status No Antibody Screen NEGATIVE Spec Expiration Date 07/26/20222358 Disposition Clinical Impression: Dialysis AV fistula malfunction Disposition: HOME SELF-CARE Condition: Stable Instructions (If sedation given, give patient instructions): Arteriovenous Graft Creation for Hemodialysis (DC) Additional Instructions: Please have them repeat your hemoglobin draw tomorrow. Keep the bandage on and let them take it off at dialysis. Return for any new or worsening symptoms Is patient prescribed a controlled substance at d/c from ED?: No Referrals: Micaela Gibson MD [Primary Care Provider] - 1-2 days Time of Disposition: 19:03
[2022-07-23 20:44] VITALS: BP 111/85; PULSE 78; RESP 15
== END 2022-07-23 20:44 | disposition home or self-care (01) ==
LOC: EC 16:43
DX: T82.590A Other mechanical complication of surgically created arteriovenous fistula, initial encounter (principal); E11.22 Type 2 diabetes mellitus with diabetic chronic kidney disease; E11.40 Type 2 diabetes mellitus with diabetic neuropathy, unspecified; I12.0 Hypertensive chronic kidney disease with stage 5 chronic kidney disease or end stage renal disease; N18.6 End stage renal disease; E78.5 Hyperlipidemia, unspecified; F41.9 Anxiety disorder, unspecified; F32.A Depression, unspecified; Z88.0 Allergy status to penicillin; Z91.040 Latex allergy status; Z88.5 Allergy status to narcotic agent; Z79.4 Long term (current) use of insulin; Z79.899 Other long term (current) drug therapy; Z99.2 Dependence on renal dialysis
CPT/HCPCS: 36415; 85025; 86850; 86900; 86901; 99284

== ENCOUNTER 2022-11-15 10:34 | Emergency (ER) | payer MEDICARE ==
[2022-11-15] MEDS ORDERED: DIPH,PERTUS(ACELL)TETVAC-LF 0.5 ML VIAL IM ONE (11:03)
--- NOTE | 2022-11-15 11:03 | ED ---
General Adult HPI - General Chief complaint: Fall Stated complaint: Fall Time Seen by Provider: 11/15/22 10:48 Source: patient, family, EMS, RN notes reviewed Mode of arrival: EMS Limitations: no limitations - History of Present Illness Initial comments: Patient is a pleasant 61-year-old female presenting to the emergency department with concern for fall. Patient was on the way to dialysis when she slipped and landed on her face. Patient has had nasal bleeding since that time, tripping to her throat. At this time patient feels it is slow down significantly. EMS did be dissection patient out in route. Patient denies any significant pain or tenderness. Patient does not recall the episode well. No neck or back pain. No chest pain or dyspnea. Unclear last tetanus immunization. Patient does take eliquis for history of heart problems. Patient is able to easily identify son - Related Data Home Medications Medication Instructions Recorded Confirmed Atorvastatin [Lipitor] 40 mg PO DAILY 07/26/16 06/01/20 Metoclopramide [Reglan] 10 mg PO TID 07/26/16 06/01/20 Calcium Acetate [Phoslo] 667 mg PO TID-W/MEALS 01/26/17 06/01/20 Furosemide [Lasix] 80 mg PO DAILY 05/31/20 06/01/20 INSULIN LISPRO (humaLOG) [humaLOG] 7 units SQ TID 05/31/20 06/01/20 Insulin Glargine,Hum.rec.anlog 25 units SQ BID 05/31/20 06/01/20 [Toujeo Solostar] Sertraline [Zoloft] 50 mg PO DAILY 05/31/20 06/01/20 Vit C/E/Zn/Coppr/Lutein/Zeaxan 1 each PO DAILY 05/31/20 06/01/20 [Preservision Areds 2 Softgel] allopurinoL [Zyloprim] 100 mg PO DAILY 05/31/20 06/01/20 Previous Rx's Medication Instructions Recorded Cephalexin [Keflex] 500 mg PO TID #21 cap 11/15/22 Allergies Allergy/AdvReac Type Severity Reaction Status Date / Time Latex, Natural Rubber Allergy Rash/Hives Verified 11/15/22 10:54 Penicillins Allergy Rash/Hives Verified 11/15/22 10:54 propoxyphene napsylate AdvReac Nausea & Verified 11/15/22 10:54 [From Xaviert-N] Vomiting Review of Systems ROS Statement: Those systems with pertinent positive or pertinent negative responses have been documented in the HPI. ROS Other: All systems not noted in ROS Statement are negative. Constitutional: Denies: fever Eyes: Denies: eye pain ENT: Reports: as per HPI, epistaxis. Denies: ear pain Respiratory: Denies: cough Cardiovascular: Denies: chest pain Endocrine: Denies: fatigue Gastrointestinal: Denies: abdominal pain Genitourinary: Denies: dysuria Musculoskeletal: Denies: back pain Neurological: Denies: headache, weakness Past Medical History Past Medical History: Diabetes Mellitus, Eye Disorder, Hyperlipidemia, Hypertension, Neurologic Disorder, Renal Disease Additional Past Medical History / Comment(s): "Legally Blind", Retinopathy, Neuropathy, "Charcot Foot, wears braces", Parkinson's, Stage 5 Chronic Kidney Disease, Dialysis Mon, Sun & Sun. History of Any Multi-Drug Resistant Organisms: None Reported Past Surgical History: Cholecystectomy, Hysterectomy, Orthopedic Surgery, Tonsillectomy Additional Past Surgical History / Comment(s): Cataract surgery-lens implants, partial hysterectomy, myomectomy, bilateral foot surgery, right foot bone removed and replaced with plate/screws, ovarian biopsy -negative. left foot amputation Past Anesthesia/Blood Transfusion Reactions: Postoperative Nausea & Vomiting (PONV) Past Psychological History: Anxiety, Depression Smoking Status: Never smoker Past Alcohol Use History: None Reported Past Drug Use History: None Reported - Past Family History Father Additional Family Medical History / Comment(s): at age 45 from "coronary thrombus". Mother Family Medical History: Cancer, COPD, Diabetes Mellitus General Exam Limitations: no limitations General appearance: alert, in no apparent distress Head exam: Present: normocephalic Eye exam: Present: normal appearance, PERRL, EOMI ENT exam: Present: other (Mild nasal swelling and ecchymosis. No tenderness. Posterior pharynx with some mild dry blood. Dried nasal blood with mild oozing on the left side) Neck exam: Present: normal inspection. Absent: tenderness Respiratory exam: Present: normal lung sounds bilaterally Cardiovascular Exam: Present: regular rate, normal rhythm GI/Abdominal exam: Present: soft. Absent: tenderness Extremities exam: Present: full ROM, other (Left lower leg amputation. Right lower leg boot and wrap). Absent: tenderness Back exam: Present: normal inspection Neurological exam: Present: alert, CN II-XII intact Expanded Neurological exam: Present: protecting the airway Motor strength exam: RUE: 5, LUE: 5, RLE: 3 (States chronic, patient does have boot), LLE: 4 (States chronic) Eye Response: (4) open spontaneously Motor Response: (6) obeys commands Verbal Response: (5) oriented Psychiatric exam: Present: normal affect, normal mood Skin exam: Present: abrasion (And skin tears) Course Vital Signs 11/15/22 11/15/22 11/15/22 10:48 11:25 12:43 Temperature 94.5 F L Pulse Rate 78 86 90 Respiratory 20 20 20 Rate Blood Pressure 115/55 113/69 99/40 O2 Sat by Pulse 98 93 L 97 Oximetry - Reevaluation(s) Reevaluation #1: 11/15/22 13:51 Disposition was delayed by epistaxis Procedures - Procedures Initial comment: Epistaxis: The patient did have left epistaxis that was originally difficult to see however on reevaluation there was bleeding from the anterior nasal septum. Suction was done. Patient did have silver nitrate to the septum with slowing down of bleeding approximately 50 or 60% however patient still did have somewhat heavy bruising. At this point a short Merisel packing was placed, this was cut down to half size. There was antibiotic was placed on a to help prevent infection. Hemostasis is obtained. Medical Decision Making - Medical Decision Making Was pt. sent in by a medical professional or institution (, PA, VASCULAR MANAGER, urgent care, hospital, or retirement...) When possible be specific @ -No Did you speak to anyone other than the patient for history (EMS, parent, family, police, friend...)? What history was obtained from this source @ -Son is present and helps provide history as well as EMS Did you review nursing and triage notes (agree or disagree)? Why? @ -I reviewed and agree with nursing and triage notes Were old charts reviewed (outside hosp., previous admission, EMS record, old EKG, old radiological studies, urgent care reports/EKG's, retirement records)? Report findings @ -No old charts were reviewed Differential Diagnosis (chest pain, altered mental status, abdominal pain women, abdominal pain men, vaginal bleeding, weakness, fever, dyspnea, syncope, headache, dizziness, GI bleed, back pain, seizure, CVA, palpatations, mental health)? @ -not applicable EKG interpreted by me (3pts min.). @ -As above X-rays interpreted by me (1pt min.). @ -None done CT interpreted by me (1pt min.). @ -Reports reviewed U/S interpreted by me (1pt. min.). @ -None done What testing was considered but not performed or refused? (CT, X-rays, U/S, labs)? Why? @ -None What meds were considered but not given or refused? Why? @ -None Did you discuss the management of the patient with other professionals (professionals i.e. , PA, VASCULAR MANAGER, lab, RT, psych nurse, social media job titles, management trainee, teacher, access control officer, outpatient case manager)? Give summary @ -No Was smoking cessation discussed for >3mins.? @ -No Was critical care preformed (if so, how long)? @ -No Were there social determinants of health that impacted care today? How? (Homelessness, low income, unemployed, alcoholism, drug addiction, transportation, low edu. Level, literacy, decrease access to med. care, half-way, rehab)? @ -No Was there de-escalation of care discussed even if they declined (Discuss DNR or withdrawal of care, Hospice)? DNR status @ -No What co-morbidities impacted this encounter? (DM, HTN, Smoking, COPD, CAD, Cancer, CVA, ARF, Chemo, Hep., AIDS, mental health diagnosis, sleep apnea, morb id obesity)? @ -None Was patient admitted / discharged? Hospital course, mention meds given and route, prescriptions, significant lab abnormalities, going to OR and other pertinent info. @ -Patient reevaluated and hemostasis remains. Patient family updated on results and need for follow-up. They're aware that patient may need procedures. Patient will be provided follow-up information.. Undiagnosed new problem with uncertain prognosis? @ -No Drug Therapy requiring intensive monitoring for toxicity (Heparin, Nitro, Insulin, Cardizem)? @ -No Were any procedures done? @ -See above Diagnosis/symptom? @ -Maxillary fracture, nasal fracture Acute, or Chronic, or Acute on Chronic? @ -Acute, acute Uncomplicated (without systemic symptoms) or Complicated (systemic symptoms)? @ -default Side effects of treatment? @ -No Exacerbation, Progression, or Severe Exacerbation? @ -No Poses a threat to life or bodily function? How? (Chest pain, USA, AR, pneumonia, PE, COPD, DKA, ARF, appy, cholecystitis, CVA, Diverticulitis, Homicidal, Suicidal, threat to staff... and all critical care pts) @ -No Disposition Clinical Impression: Fall, Maxillary fracture, Nasal fracture Disposition: HOME SELF-CARE Condition: Stable Instructions (If sedation given, give patient instructions): Facial Fracture (ED) Additional Instructions: Please do follow-up with ENT and ophthalmology as well as your primary care physician in the next one to 2 days for recheck. Return for increased bleeding, confusion, weakness, worsening change in symptoms or any other concerns. Antibiotic prescription has been sent to pharmacy to be started today. Please hold eliquis for 48 hours, longer if any bleeding occurs. Packing to be removed by ENT within the week. Prescriptions: Cephalexin [Keflex] 500 mg PO TID #21 cap Is patient prescribed a controlled substance at d/c from ED?: No Referrals: Micaela Gibson MD [Primary Care Provider] - 1-2 days Festus Abebe MD [STAFF PHYSICIAN] - 1-2 days Reece Kelly MD [STAFF PHYSICIAN] - 1-2 days Andrew Jaquez MD [STAFF PHYSICIAN] - 1-2 days Time of Disposition: 13:53
--- NOTE | 2022-11-15 12:19 | CT ---
EXAMINATION TYPE: CT brain cspine wo con, CT facial bones wo con DATE OF EXAM: 11/15/2022 COMPARISON: Prior CT brain 2017 HISTORY: fall, trauma to nose with pain, headache, and neck pain after injury. CT DLP: 1267.3 mGycm. Automated Exposure Control for Dose Reduction was Utilized. TECHNIQUE: CT scan of the head, facial bones, and cervical spine are performed without contrast. FINDINGS: There is no acute intracranial hemorrhage or midline shift identified. Mild to moderate v entricular and sulcal prominence is redemonstrated. Mild low attenuation in the periventricular whit e matter redemonstrated. Age-indeterminate infarct left holt radiata posterior left frontal lobe ne ar axial images 37 and 38 is favored old in age. The calvarium is intact. Osseous structures are demineralized. The mandible is intact. The temporomandibular joints are mainta ined bilaterally. There is moderate soft tissue swelling over the nasal bones with subtle acute nondisplaced fracture t hrough the left aspect. There is subtle fracture through the nasal bridge with adjacent fluid and air image 22, slight displacement noted sagittal image 45 at this level. Comminuted slightly displaced f ractures through the nasal septum is seen with adjacent opacification and/or moderate hemorrhage into the bilateral ethmoid sinuses. There is small air-fluid level in the left maxillary sinus. There is new patchy fluid suspected hemorrhage in the nasopharyngeal airway. The oral pharyngeal airway is pat ent. There is acute comminuted displaced fracture through the anterior right maxillary sinus wall with jose r complete opacification or hemorrhage into the right maxillary sinus there is probable additional fr acture through the posterior right maxillary sinus wall with small focus of air along the wall axial image 46. Subtle displacement suspicious for fracture involving the right orbital floor coronal image 33. Remai nder of the orbital floor and sears are intact. The globes show bilateral aphakia similar to prior. I ntraconal fat is preserved bilaterally. Zygomatic arches are intact. There is focal small to moderate-sized hematoma over the anterior right maxillary sinus axial image 43. The pterygoid plates are intact. Lack of dentition is noted. Cervical spine is visualized in its entirety from C1 through upper thoracic levels and demonstrates s atisfactory alignment without evidence of acute fracture or dislocation. Prevertebral soft tissue ap pears within normal limits. The C1-C2 articulation is within normal limits on the coronal images. V ertebral body heights and disc space heights are preserved. Spinal canal is maintained. Lung apices s how no pneumothorax. There is partial visualization of right internal jugular central venous catheter . Focal mild to moderate subcutaneous edema anterior to the right clavicle is partially imaged. Corre late clinically. IMPRESSION: 1. There is no acute fracture or dislocation evident in the cervical spine. 2. No acute intracranial hemorrhage or midline shift is seen. 3. Acute comminuted fractures through the nasal bones including nasal septum with adjacent moderate e thmoid fluid suspected hemorrhage. There are acute displaced fractures through the anterior and likel y nondisplaced subtle fracture posterior wall right maxillary sinus. There is subtle acute fracture i n the inferior right orbital floor. There is significant new fluid suspected hemorrhage in the right maxillary sinus. There is hemorrhage into the nasopharyngeal airway. The retropharyngeal airway is pa tent. Small focal hematoma over the right maxillary sinus is noted. Small amount of fluid suspected h emorrhage into the left maxillary sinus.
[2022-11-15] MEDS ORDERED: SILVER NITRATE APPLICATOR 1 EACH STICK..EA. TOPICAL STA (12:50)
[2022-11-15] MEDS ORDERED: MORPHINE SULFATE 4 MG/ML SYRINGE IVP STA (13:14)
[2022-11-15] MEDS ORDERED: BACITRACIN OINT 1 EACH PACKET TOPICAL ONE (13:23)
[2022-11-15] MEDS ORDERED: OXYMETAZOLINE 0.05% NASL SPRAY 1 SPRAY BOTTLE NASAL STA (13:38)
[2022-11-15] MEDS ORDERED: ACET/COD 300 MG/30 MG STARTER PACK 6 TAB BTL PO STA (14:20)
[2022-11-15 14:23] VITALS: RESP 16
[2022-11-15 14:40] VITALS: BP 110/60; PULSE 78; TEMP 97.8
== END 2022-11-15 14:40 | disposition home or self-care (01) ==
LOC: EC 10:34
DX: S02.2XXA Fracture of nasal bones, initial encounter for closed fracture (principal); S02.40CA Maxillary fracture, right side, initial encounter for closed fracture; E11.22 Type 2 diabetes mellitus with diabetic chronic kidney disease; I12.0 Hypertensive chronic kidney disease with stage 5 chronic kidney disease or end stage renal disease; N18.6 End stage renal disease; E78.5 Hyperlipidemia, unspecified; F41.9 Anxiety disorder, unspecified; F32.A Depression, unspecified; Z79.4 Long term (current) use of insulin; Z79.84 Long term (current) use of oral hypoglycemic drugs; Z79.899 Other long term (current) drug therapy; Z91.040 Latex allergy status; Z88.0 Allergy status to penicillin; Z99.2 Dependence on renal dialysis; Z88.8 Allergy status to other drugs, medicaments and biological substances; Z23 Encounter for immunization; W01.0XXA Fall on same level from slipping, tripping and stumbling without subsequent striking against object, initial encounter
CPT/HCPCS: 72125; 70486; 70450; 90715; 99285; 96374; 90471; 30901; J2270